=== PATIENT | female | born 1930 | race Caucasian/White ===

== ENCOUNTER 2017-12-21 02:12 | Inpatient (IN) ==
[2017-12-21 02:28] LABS: ABG Base Excess 0.6 mmol/L (-2.4-2.3); ABG HCO3 27.1 mmhg (22.0-26.0); ABG Oxygen Saturation 97 % (90-100); ABG PO2 99.8 mmhg (80-100); ABG TCO2 28.9 mmhg (23-27)
[2017-12-21 02:30] LABS: Allen's Test Patient Unable
[2017-12-21 03:15] LABS: Basophils # 0.1 K/mm3 (0-0.2); Basophils % 0.7 % (0.1-2.0); Eosinophils # 0.5 K/mm3 (0.0-0.4); Eosinophils % 5.1 % (0.1-12.0); Lymphocytes # 2.2 K/mm3 (0.7-4.5); Lymphocytes % 23.6 K/mm3 (10-50); Mean Corpuscular HGB Conc 31.8 g/dL (31.8-35.4); Mean Corpuscular Hemoglobin 27.7 pg (27.0-31.2); Mean Corpuscular Volume 87.1 fl (81-99); Mean Platelet Volume 6.9 fl (7.4-10.4); Monocytes # 0.4 K/mm3 (0.1-1.0); Monocytes % 4.6 % (1.7-9.3); Platelet Count 260 K/mm3 (142-424); Red Blood Count 5.05 M/mm3 (4.20-5.40); Red Cell Distribution Width 13.7 % (11.5-17.5); White Blood Count 9.1 K/mm3 (4.8-10.8)
[2017-12-21 03:29] LABS: Albumin Level 3.2 gm/dL (3.4-5.0); Albumin/Globulin Ratio 0.8 (1.1-1.8); Anion Gap 7.9 mEq/L (5-15); Bilirubin,Total 0.4 mg/dL (0.2-1.0); Calcium 8.9 mg/dL (8.5-10.1); Globulin 4.1 gm/dl (1.3-3.2); Potassium 3.9 mmoL/L (3.5-5.1); Total Protein,Serum 7.3 gm/dL (6.4-8.2)
[2017-12-21 03:33] LABS: Appearance,Urine CLEAR (Clear); Bilirubin,Urine Negative (Negative); Blood, Urine TRACE-L (Negative); Color,Urine YELLOW (Yellow); Glucose,Urine (UA) Negative (Negative); Ketones,Urine Negative (Negative); Leukocyte Esterase,Urine Negative (Negative); Microscopic, Urine URINE MICROSCOPIC (MICROSCOPIC); Protein,Urine 1+ (Negative); Specific Gravity, Urine 1.015 (1.005-1.030)
[2017-12-21 03:38] LABS: Bacteria,Urine 1+ /lpf; Mucus,Urine 1+ /lpf
[2017-12-21 03:49] LABS: Creatine Kinase 166 U/L (26-192)
[2017-12-21 05:25] LABS: ABG Base Excess 0.4 mmol/L (-2.4-2.3); ABG Oxygen Saturation 98 % (90-100); ABG PCO2 40.2 mmhg (35.0-45.0); ABG PH 7.41 mmol/L (7.35-7.45); ABG PO2 98.4 mmhg (80-100); ABG TCO2 26.3 mmhg (23-27)
[2017-12-21 05:28] LABS: Allen's Test Patient Unable; Oxygen 50 %; Tidal Volume bipap 16/8
[2017-12-21 06:08] LABS: T4 (Thyroxine) 10.5 ug/dl (4.7-13.3); Thyroid Stimulating Hormone 1.85 uIU/ml (0.358-3.740)
--- NOTE | 2017-12-21 07:03 | Emergency Department Note ---
ED Disposition Clinical Impression: Acute exacerbation of chronic obstructive airways disease, SDAT (senile dementia of Alzheimer's type) Fall Qualifiers: Encounter type: initial encounter Qualified Code(s): W19.XXXA - Unspecified fall, initial encounter Disposition: Admitted as Observation Condition on Discharge: Serious Referrals: Marcus Hardy MD [Primary Care Provider] - - Critical Care Critical Care Time: No Attestation: On 12/21/17, the high probability of a clinically significant, sudden or life threatening deterioration of the following system(s) required my full and direct attention, intervention and personal management. The time I documented below is in addition to time spent performing reported procedures but includes the following listed in this critical care notation. Medical Decision Making - Medical Records Medical records reviewed: Yes: I reviewed the patient's medical records. - Josh Inquiry Pt receiving controlled substance: No Vital Signs: 12/21/17 02:13 12/21/17 03:38 12/21/17 04:49 Temperature 98.7 F Temperature Source Rectal Pulse Rate [Right Radial] 133 H 121 H 118 H Respiratory Rate 28 H 23 21 Blood Pressure [Right Arm] 155/113 137/94 107/65 Blood Pressure Mean [Right Arm] 127 108 79 Blood Pressure Source [Right Arm] Automatic Cuff Automatic Cuff Automatic Cuff Blood Pressure Position [Right Arm] Sitting Sitting Sitting 02 Sat by Pulse Oximetry 68 L 94 L 95 Oxygen Delivery Method Room Air BiPAP BiPAP - Lab Data Lab results reviewed: Yes: I reviewed the patient's lab results. Lab Results 12/21/17 02:26: Specimen Source Left radial, O2 % 100%,nrb, ABG pH 7.30 L, ABG pCO2 57.0 H, ABG pO2 99.8, ABG HCO3 27.1 H, ABG Total CO2 28.9 H, ABG O2 Saturation 97, ABG Base Excess 0.6, Mele Test Patient unable 12/21/17 02:36: Urine Color Yellow, Urine Appearance Clear, Urine pH 6.0, Ur Specific [place] 1.015, Urine Protein 1+, Urine Glucose (UA) Negative, Urine Ketones Negative, Urine Blood Trace-l, Urine Nitrate Negative, Urine Bilirubin Negative, Urine Urobilinogen 1.0, Ur Leukocyte Esterase Negative, Urine WBC 3-5, Urine Bacteria 1+, Urine Mucus 1+ 12/21/17 03:07: WBC 9.1, RBC 5.05, Hgb 14.0, Hct 44.0, MCV 87.1, MCH 27.7, MCHC 31.8, RDW 13.7, Plt Count 260, MPV 6.9 L, Neut % (Auto) 66.0, Lymph % (Auto) 23.6, [place] % (Auto) 4.6, Eos % (Auto) 5.1, Baso % (Auto) 0.7, Neut # (Auto) 6.0, Lymph # (Auto) 2.2, [place] # (Auto) 0.4, Eos # (Auto) 0.5 H, Baso # (Auto) 0.1 12/21/17 03:07: Sodium 142, Potassium 3.9, Chloride 106, Carbon Dioxide 32, Anion Gap 7.9, BUN 23 H, Creatinine 1.00, Estimated Creat Clear 53, Estimated GFR 52 L, Est GFR ( Amer) 63, Glucose 131 H, Calcium 8.9, Total Bilirubin 0.4, AST 26, ALT 38, Alkaline Phosphatase 120 H, Total Protein 7.3, Albumin 3.2 L, Globulin 4.1 H, Albumin/Globulin Ratio 0.8 L 12/21/17 03:07: Lactate 1.5 12/21/17 03:07: Total Creatine Kinase 166, CK-MB (CK-2) 6.2 H D, CK-MB (CK-2) Rel Index 3.7, Troponin I < 0.02 12/21/17 03:07: B-Natriuretic Peptide 36 12/21/17 05:02: Specimen Source Left radial, O2 % 50, ABG pH 7.41, ABG pCO2 40.2, ABG pO2 98.4, ABG HCO3 25.0, ABG Total CO2 26.3, ABG O2 Saturation 98, ABG Base Excess 0.4, Mele Test Patient unable, Vent Rate 16, Tidal Volume bipap 16/8 12/21/17 05:30: Troponin I < 0.02, TSH 1.85, Thyroxine (T4) 10.5 Result diagrams: 12/21/17 03:07 12/21/17 03:07 Orders (Tests/Meds): ED MEDICATIONS Discontinued Medications Generic Name Dose Route Start Last Admin Trade Name Freq PRN Reason Stop Dose Admin Albuterol/Ipratropium 3 ml 12/21/17 02:26 Duoneb 3ml Neb IH 12/21/17 02:27 ONCE ONE Furosemide 40 mg 12/21/17 02:50 12/21/17 02:59 Lasix 100mg/10ml Vial IV 12/21/17 02:51 40 mg ONCE ONE Administration Methylprednisolone Sodium Succinate 125 mg 12/21/17 02:26 12/21/17 02:36 Solu-Medrol 125mg/2ml Vial IV 12/21/17 02:27 125 mg ONCE ONE Administration ORDERS Category Date Time Status CT cervical spine wo con Stat Cat Scan 12/21/17 02:[address] head/brain wo con Stat Cat Scan 12/21/17 02:33 Taken XR chest portable Stat Exams 12/21/17 02:22 Taken XR pelvis 1-2V Stat Exams 12/21/17 02:33 Taken Urinalysis and Microscopic Stat Lab 12/21/17 02:36 Ordered Blood Culture Stat Micro 12/21/17 03:07 Ordered - Radiology Data #1 Image(s): Chest, Pelvis Image Reviewed: Yes I reviewed the patient's radiology image Preliminary Findings: Abnormal (chronic changes ) - CT Data CT Scan: Head, C-Spine Time Received: 07:[address] Reviewed: Yes: I have viewed the radiologist's interpretation Preliminary Findings: No Fracture Seen - ECG Data Tracing #1 Arrhythmias present: sinus tach Ischemic changes: non-specific ST-T wave changes ECG compared to prior tracings: there are no significant changes - Physician Consults Physician Consulted: eve Reason -: Admission Resp/SOB HPI - General Chief Complaint: Shortness of Breath/Dyspnea Stated Complaint: shortness of breath Time Seen by Provider: 12/21/17 02:30 Mode of Arrival: EMS Source of Information: Relative, EMS, Medical Record Limitations: Altered Mental Status Description of Symptoms (Recalled from ER Triage Doc. by RN): prison reports difficulty breathing for one week, tonight it became worse and pt was using accessory muscles to breathe. - History of Present Illness pt with acute sob with no def chest pain and found on floor - pt unable to give hx sec to sdat Complaint: shortness of breath Onset (ago): hour(s) Severity: severe Known history of: COPD Associated symptoms: denies other symptoms Treatment prior to arrival: bronchodilator - Related Data Home oxygen amount: none Home Medications Medication Instructions Recorded Confirmed Aspirin [Aspirin 81mg chewable 81 mg PO DAILY 06/06/17 12/21/17 tab] Budesonide/Formoterol Fumarate 6 gm IH DAILY 06/06/17 12/21/17 [Symbicort 160-4.5 Mcg Inhaler] Cetirizine HCl 10 mg PO DAILY 06/06/17 12/21/17 Cranberry Fruit Extract [Cranberry] 405 mg PO DAILY 06/06/17 12/21/17 Ipratropium [place] [Atrovent 0.5 mg IH QID 06/06/17 12/21/17 0.5mg/2.5mL neb] Lactulose [Lactulose 10gm/15ml 1 dose PO DIRECTED 06/06/17 12/21/17 Oral Soln] Memantine HCl [Memantine 10mg 10 mg PO BID 06/06/17 12/21/17 Tablet] Metoprolol Tartrate [Lopressor 25 mg PO BID 06/06/17 12/21/17 25mg tablet] Omeprazole [Omeprazole 40mg 40 mg PO DAILY 06/06/17 12/21/17 Capsule] Polyethylene Glycol 3350 [Miralax 17 gm PO DAILY 06/06/17 12/21/17 17gm Packet] Allergies Allergy/AdvReac Type Severity Reaction Status Date / Time No Known Allergies Allergy Verified 12/21/17 02:21 [facility] History I have reviewed the patient's past medical history: Yes - Social History Alcohol Intake: never - Psychiatric History Expresses thoughts of harming self/others: None Suicide Plan Description: No Plan ROS Obtained: Yes All systems reviewed & no additional complaints - Constitutional Constitutional: Denies fever(s) - Eyes Eyes: Denies change in vision - ENT Ears, Nose, Mouth, and Throat: Denies sore throat - Cardiovascular Cardiovascular: Denies chest pain, Reports dyspnea - Respiratory Respiratory: Yes cough, Yes dyspnea - Gastrointestinal Gastrointestingal: Denies: abdominal pain, vomiting - Genitourinary Female Genitourinary: Denies hematuria - Musculoskeletal Musculoskeletal: Denies joint pain - Integumentary/Breasts Skin/Breast: Denies rash - Neurologic Neurologic: Denies seizure-like activity Physical Exam - General General appearance: other (sob ) - Head Head exam: atraumatic - Eye Eye exam: Present: PERRL, EOMI - ENT ENT exam: Present: mucous membranes dry - Neck Neck exam: Present: trachea midline - Respiratory Respiratory exam: Present: respiratory distress, wheezes - Cardiovascular Cardiovascular exam: Present: tachycardia, systolic murmur - Abdominal Exam Abdominal exam: Present: soft - Extremities Exam Extremities exam: Present: pedal edema. Absent: calf tenderness - Neurological Exam Neurological exam: Present: alert, CN II-XII intact - Skin Skin exam: Absent: rash
--- NOTE | 2017-12-21 09:05 | Pharmacy Consult Notes ---
[facility] Pharmacy VTE Monitoring - Patient Demographics Admission date: 12/21/17 Report Date: 12/21/17 Time: 09:04 Allergies/Adverse Reactions: Patient Allergies No Known Allergies Allergy (Verified 12/21/17 02:21) Height: 1.68 m Weight: 77.706 kg Patient Problems: Current Active Problems Acute exacerbation of chronic obstructive airways disease (Acute) SDAT (senile dementia of Alzheimer's type) (Acute) Fall (Acute) - VTE Risk Labs: VTE Related Lab Results Hgb 14.0 g/dL (12.2-16.2) 12/21/17 03:07 Hct 44.0 % (37.0-47.0) 12/21/17 03:07 Plt Count 260 K/mm3 (142-424) 12/21/17 03:07 BUN 23 mg/dL (7-18) H 12/21/17 03:07 Creatinine 1.00 mg/dL (0.55-1.02) 12/21/17 03:07 Estimated Creat Clear 53 mL/min (0-300) 12/21/17 03:07 Clinical Trial Participant: No - Prophylaxis VTE Prophylaxis Ordered?: Yes Types of VTE Prophylaxis: TEDS Knee High
--- NOTE | 2017-12-21 13:56 | History & Physical Report ---
*Admission Date: 12/21/17 *Chief complaint: Dyspnea, mental status change *History of present illness: 87-year-old white female with history of chronic bronchitis and significant dementia, requiring Seroquel therapy, frequent urinary tract infections who has been a resident of the [facility] [place] over the past 1-2 years. Over the past 3-4 days she has transferred to our service at that institution, and over the past week or so apparently has been becoming more dyspneic and short of air along with increasing problems with oral intake and coughing and sputum production. Had some falls earlier this morning, came to the emergency department where x- rays have been negative, but she was found to be hypercapnic, minimally acidotic and was placed on BiPAP therapy which improve her hypercapnia but was felt to have a COPD exacerbation and was admitted to hospital for IV antibiotics and increased pulmonary toilet. I discussed the case with 2 of her daughters on admission, they emphasized her DNR status and their ongoing placement desire at the [facility]. Apparently she has been well managed with a regimen of albuterol and budesonide nebulizer treatments. [facility] History Medical History: Reports:: Hypertension, Myocardial Infarction Denies:: Diabetes Mellitus Type 1, Diabetes Mellitus Type 2 Other Surgeries: Yes: Hysterectomy-Total, Other - *Social History Smoking Status: Never smoker Alcohol Intake: never Occupational Status: disabled - Psychiatric History Expresses thoughts of harming self/others: None Suicide Plan Description: No Plan *Family Hx:: Cancer, Diabetes, Heart Attack Review of Systems - Review of Systems Review of systems:: unable to obtain Patient is obtunded, review of systems from record review and daughters, please see HPI - *Neurologic Denies seizure-like activity Meds Home Medications Medication Instructions Recorded Confirmed Type Aspirin [Aspirin 81mg chewable 81 mg PO DAILY 06/06/17 12/21/17 History tab] Cetirizine HCl 10 mg PO DAILY 06/06/17 12/21/17 History Cranberry Fruit Extract [Cranberry] 405 mg PO DAILY 06/06/17 12/21/17 History Ipratropium [place] [Atrovent 0.5 mg IH QID 06/06/17 12/21/17 History 0.5mg/2.5mL neb] Lactulose [Lactulose 10gm/15ml 1 dose PO MOWEFR 06/06/17 12/21/17 History Oral Soln] Memantine HCl [Memantine 10mg 10 mg PO BID 06/06/17 12/21/17 History Tablet] Metoprolol Tartrate [Lopressor 12.5 mg PO BID 06/06/17 12/21/17 History 25mg tablet] Omeprazole [Omeprazole 40mg 40 mg PO DAILY 06/06/17 12/21/17 History Capsule] Polyethylene Glycol 3350 [Miralax 17 gm PO DAILY 06/06/17 12/21/17 History 17gm Packet] Acetaminophen [Acetaminophen 650mg 650 mg RC Q6HP PRN 12/21/17 12/21/17 History suppository] Bismuth Subsalicylate 30 ml PO QIDP PRN 12/21/17 12/21/17 History [Pepto-Bismol] Guaifenesin/Dextromethorphan 5 ml PO Q4HP PRN 12/21/17 12/21/17 History [Robafen Dm Cough Liquid] Ipratropium/Albuterol Sulfate 3 ml IH Q2HP PRN 12/21/17 12/21/17 History [Duoneb 3mL neb] Ipratropium/Albuterol Sulfate 3 ml IH QID 12/21/17 12/21/17 History [Duoneb 3mL neb] Linaclotide [Linzess] 72 mcg PO DAILY 12/21/17 12/21/17 History Magnesium Hydroxide [Milk of 30 ml PO DAILYP PRN 12/21/17 12/21/17 History Magnesia] Polyethylene Glycol 3350 [Miralax 17 gm PO DAILY 12/21/17 12/21/17 History 17gm Packet] Promethazine HCl [Phenergan 12.5 mg IM Q6HP PRN 12/21/17 12/21/17 History 25mg/mL 1mL vial] Quetiapine Fumarate [Seroquel] 12.5 mg PO HS 12/21/17 12/21/17 History Sennosides [Senna] 8.6 mg PO BID 12/21/17 12/21/17 History Allergies Allergy/AdvReac Type Severity Reaction Status Date / Time No Known Allergies Allergy Verified 12/21/17 02:21 Exam Vital signs and Labs for Last 24 Hours: Temp Pulse Resp BP Pulse Ox 98.0 F 101 H 20 146/85 98 12/21/17 08:18 12/21/17 08:18 12/21/17 08:18 12/21/17 08:18 12/21/17 08:18 Laboratory Results - last 24 hr 12/21/17 02:26: Specimen Source Left radial, O2 % 100%,nrb, ABG pH 7.30 L, ABG pCO2 57.0 H, ABG pO2 99.8, ABG HCO3 27.1 H, ABG Total CO2 28.9 H, ABG O2 Saturation 97, ABG Base Excess 0.6, Mele Test Patient unable 12/21/17 02:36: Urine Color Yellow, Urine Appearance Clear, Urine pH 6.0, Ur Specific [place] 1.015, Urine Protein 1+, Urine Glucose (UA) Negative, Urine Ketones Negative, Urine Blood Trace-l, Urine Nitrate Negative, Urine Bilirubin Negative, Urine Urobilinogen 1.0, Ur Leukocyte Esterase Negative, Urine WBC 3-5, Urine Bacteria 1+, Urine Mucus 1+ 12/21/17 03:07: WBC 9.1, RBC 5.05, Hgb 14.0, Hct 44.0, MCV 87.1, MCH 27.7, MCHC 31.8, RDW 13.7, Plt Count 260, MPV 6.9 L, Neut % (Auto) 66.0, Lymph % (Auto) 23.6, [place] % (Auto) 4.6, Eos % (Auto) 5.1, Baso % (Auto) 0.7, Neut # (Auto) 6.0, Lymph # (Auto) 2.2, [place] # (Auto) 0.4, Eos # (Auto) 0.5 H, Baso # (Auto) 0.1 12/21/17 03:07: Sodium 142, Potassium 3.9, Chloride 106, Carbon Dioxide 32, Anion Gap 7.9, BUN 23 H, Creatinine 1.00, Estimated Creat Clear 53, Estimated GFR 52 L, Est GFR ( Amer) 63, Glucose 131 H, Calcium 8.9, Total Bilirubin 0.4, AST 26, ALT 38, Alkaline Phosphatase 120 H, Total Protein 7.3, Albumin 3.2 L, Globulin 4.1 H, Albumin/Globulin Ratio 0.8 L 12/21/17 03:07: Lactate 1.5 12/21/17 03:07: Total Creatine Kinase 166, CK-MB (CK-2) 6.2 H D, CK-MB (CK-2) Rel Index 3.7, Troponin I < 0.02 12/21/17 03:07: B-Natriuretic Peptide 36 12/21/17 05:02: Specimen Source Left radial, O2 % 50, ABG pH 7.41, ABG pCO2 40.2, ABG pO2 98.4, ABG HCO3 25.0, ABG Total CO2 26.3, ABG O2 Saturation 98, ABG Base Excess 0.4, Mele Test Patient unable, Vent Rate 16, Tidal Volume bipap 06/1212/21/17 05:30: Troponin I < 0.02, TSH 1.85, Thyroxine (T4) 10.5 12/21/17 10:11: Troponin I < 0.02 12/21/17 13:12: Troponin I < 0.02 I & O for Last 24 hours: Intake & Output 12/19/17 12/20/17 12/21/17 12/22/17 11:59 11:59 11:59 11:59 Intake Total 0 / 0 Output Total 1300 / 1300 Balance -1300 / -1300 0 / 0 Weight 171 lb 5 oz Narrative: Patient is obtunded, responds to tactile stimuli, nonverbal. Does not open her eyes. Oropharynx appears clear. No JVD. Lungs have rhonchi and somewhat poor air movement in the bases. Heart rate regular but exam is limited by her lung sounds. Abdomen is slightly tender in both lower abdominal quadrants but no rebound or guarding or masses. 2+ edema below the shins. Patient is wearing JILL hose. No obvious skin breakdown. Moves upper extremities spontaneously. Neurologic exam unable to be accurately recorded because of her significant obtundation. Assessment and Plan (1) Chronic bronchitis with acute exacerbation Current visit: Yes Status: Acute Category: Medical Code(s): J20.9 - Acute bronchitis, unspecified; J42 - Unspecified chronic bronchitis Agree with admission, close observation of oxygenation status. IV antibiotics. Continue increased pulmonary toilet. We will respect DNR status. (2) Chronic bronchitis Current visit: Yes Status: Acute Category: Medical Code(s): J42 - Unspecified chronic bronchitis (3) Dementia with behavioral problem Current visit: Yes Status: Acute Category: Medical Code(s): F03.91 - Unspecified dementia with behavioral disturbance Agree with ongoing long-term care. Apparently there was some concern from previous healthcare provider about patient's atypical antipsychotic. Family is well aware of the risks of Seroquel therapy and wished discontinued. They report excellent improvement in aggressive and self harm activities. We will continue this when she goes back to the long-term care facility. (4) Fall Current visit: Yes Status: Acute Qualifiers: Encounter type: initial encounter Qualified Code(s): W19.XXXA - Unspecified fall, initial encounter Category: Medical Code(s): W19.XXXA - Unspecified fall, initial encounter (5) SDAT (senile dementia of Alzheimer's type) Current visit: Yes Status: Acute Category: Medical Code(s): G30.1 - Alzheimer's disease with late onset; F02.80 - Dementia in other diseases classified elsewhere without behavioral disturbance
[2017-12-22 06:49] LABS: Basophils % 0.1 % (0.1-2.0); Eosinophils % 0.1 % (0.1-12.0); Hematocrit 39.9 % (37.0-47.0); Hemoglobin 12.6 g/dL (12.2-16.2); Lymphocytes # 0.8 K/mm3 (0.7-4.5); Lymphocytes % 7.5 K/mm3 (10-50); Mean Corpuscular HGB Conc 31.7 g/dL (31.8-35.4); Mean Corpuscular Hemoglobin 27.1 pg (27.0-31.2); Mean Corpuscular Volume 85.4 fl (81-99); Mean Platelet Volume 7.4 fl (7.4-10.4); Monocytes # 0.4 K/mm3 (0.1-1.0); Monocytes % 3.4 % (1.7-9.3); Neutrophils # 9.6 K/mm3 (1.8-7.8); Neutrophils % 88.9 % (37.0-80.0); Platelet Count 237 K/mm3 (142-424); Red Blood Count 4.67 M/mm3 (4.20-5.40); Red Cell Distribution Width 13.7 % (11.5-17.5); White Blood Count 10.8 K/mm3 (4.8-10.8)
[2017-12-22 06:58] LABS: Anion Gap 8.2 mEq/L (5-15); Calcium 8.8 mg/dL (8.5-10.1); Potassium 4.2 mmoL/L (3.5-5.1)
[2017-12-22 09:33] LABS: Lymphocytes % 5 % (10-50); Monocytes % 2 % (2-9); Neutrophils % 91 % (42-76); RBC Morphology Normal; Total Cells Counted 100
--- NOTE | 2017-12-22 16:40 | Progress Note ---
Internal Medicine - PN: Subj *Date: 12/22/17 *Time: 12:15 Interval history: Overnight showed mild improvement in respiratory status and mentation. Tolerating some oral intake today. Remains afebrile. Still requiring Ventimask 50% at 15 L. Increased responsiveness on exam. Denies nausea or vomiting Exam Vital signs and Labs for Last 24 Hours: Temp Pulse Resp BP Pulse Ox 97.9 F 91 H 20 137/68 97 12/22/17 15:18 12/22/17 15:18 12/22/17 15:18 12/22/17 15:18 12/22/17 15:18 Laboratory Results - last 24 hr 12/22/17 06:33: WBC 10.8, RBC 4.67, Hgb 12.6, Hct 39.9, MCV 85.4, MCH 27.1, MCHC 31.7 L, RDW 13.7, Plt Count 237, MPV 7.4, Neut % (Auto) 88.9 H, Lymph % (Auto) 7.5 L, [place] % (Auto) 3.4, Eos % (Auto) 0.1, Baso % (Auto) 0.1, Neut # (Auto) 9.6 H, Lymph # (Auto) 0.8, [place] # (Auto) 0.4, Eos # (Auto) 0.0, Baso # (Auto) 0.0, Total Counted 100, Neutrophils % (Manual) 91 H, Band Neutrophils % 1.0, Lymphocytes % (Manual) 5 L, Atypical Lymphs % 1.0, Monocytes % (Manual) 2, Platelet Estimate Normal, RBC Morphology Normal 12/22/17 06:33: Sodium 143, Potassium 4.2, Chloride 106, Carbon Dioxide 33 H, Anion Gap 8.2, BUN 35 H D, Creatinine 0.97, Estimated Creat Clear 48, Estimated GFR 54 L, Est GFR ( Amer) 66, Glucose 148 H, Calcium 8.8 I & O for Last 24 hours: Intake & Output 12/19/17 12/20/17 12/21/17 12/22/17 23:59 23:59 23:59 23:59 Intake Total 559 / 559 1326 / 1326 Output Total 1950 / 1950 1050 / 1050 Balance -1391 / -1391 276 / 276 Weight 77.706 kg 78.131 kg - *Routine HEENT Exam Head: Present: normocephalic, atraumatic Eye: Present: EOMI, PERRL ENT: Present: mucous membranes moist Comments: Right sided matting of eyelids - *Routine Neck Exam Present: supple, full ROM. Absent: JVD - *Routine Respiratory Exam Present: CTA bilaterally, prolonged expiratory phase, rales, crackles - *Routine Cardiovascular Exam Present: RRR, Normal S1, Normal S2. Absent: murmur - *Routine Abdominal Exam Present: soft, normoactive bowel sounds. Absent: tenderness - *Routine Rectal Exam Patient deferred: visual exam - *Routine Exam Patient deferred: external exam - *Routine Extremities Exam Absent: cyanosis, clubbing, edema - *Routine Skin Exam Present: intact, ecchymosis (Right foot). Absent: cyanosis - *Routine Neurological Exam Responsive to voice, does not follow directions. Assessment and Plan (1) Chronic bronchitis with acute exacerbation Current visit: Yes Status: Acute Category: Medical Code(s): J20.9 - Acute bronchitis, unspecified; J42 - Unspecified chronic bronchitis Continue current course of antibiotics, interval improvement, appears to be defervescing. (2) Chronic bronchitis Current visit: Yes Status: Acute Category: Medical Code(s): J42 - Unspecified chronic bronchitis (3) Dementia with behavioral problem Current visit: Yes Status: Acute Category: Medical Code(s): F03.91 - Unspecified dementia with behavioral disturbance (4) Fall Current visit: Yes Status: Acute Qualifiers: Encounter type: initial encounter Qualified Code(s): W19.XXXA - Unspecified fall, initial encounter Category: Medical Code(s): W19.XXXA - Unspecified fall, initial encounter (5) SDAT (senile dementia of Alzheimer's type) Current visit: Yes Status: Acute Category: Medical Code(s): G30.1 - Alzheimer's disease with late onset; F02.80 - Dementia in other diseases classified elsewhere without behavioral disturbance - Assessment and plan all Dx Assessment and Plan for all problems:: Continue current course for treatment of problems. Patient responding to antibiotics with increased responsiveness to caregivers. Wean oxygen as tolerated with goal greater than 92% while awake, greater than 88% while asleep -Continue diet as tolerated -Continues to require inpatient medical management for respiratory failure
--- NOTE | 2017-12-23 11:45 | Progress Note ---
Internal Medicine - PN: Subj *Date: 12/23/17 *Time: 11:15 Interval history: Able to wean off supplemental oxygen overnight. More alert this morning. Opens to voice. Afebrile, hemodynamically stable, taking oral food, holding cup. Caregivers at bedside state patient is significantly improved however still only approximately 75% of her baseline. No acute events. Exam Vital signs and Labs for Last 24 Hours: Temp Pulse Resp BP Pulse Ox 97.9 F 76 20 143/70 89 L 12/23/17 07:55 12/23/17 07:55 12/23/17 07:55 12/23/17 07:55 12/23/17 07:55 I & O for Last 24 hours: Intake & Output 12/20/17 12/21/17 12/22/17 12/23/17 23:59 23:59 23:59 23:59 Intake Total 559 / 559 1566 / 1566 600 / 600 Output Total 1950 / 1950 1050 / 1050 701 / 701 Balance -1391 / -1391 516 / 516 -101 / -101 Weight 77.706 kg 78.131 kg 79.038 kg Microbiology Reports for the Last 24 Hours: Microbiology 12/21/17 03:07 Blood Blood Culture - Preliminary NO GROWTH AFTER 48 HOURS 12/21/17 03:07 Blood Blood Culture - Preliminary NO GROWTH AFTER 48 HOURS Narrative: - *Routine HEENT Exam Head: Present: normocephalic, atraumatic Eye: Present: EOMI, PERRL ENT: Present: mucous membranes moist Comments: Right sided matting of eyelids - *Routine Neck Exam Present: supple, full ROM. Absent: JVD - *Routine Respiratory Exam Present: CTA bilaterally, prolonged expiratory phase, no rales, no crackles - *Routine Cardiovascular Exam Present: RRR, Normal S1, Normal S2. Absent: murmur - *Routine Abdominal Exam Present: soft, normoactive bowel sounds. Absent: tenderness - *Routine Rectal Exam Patient deferred: visual exam - *Routine Exam Patient deferred: external exam - *Routine Extremities Exam Absent: cyanosis, clubbing, edema - *Routine Skin Exam Present: intact, ecchymosis (Right foot). Absent: cyanosis - *Routine Neurological Exam Responsive to voice, more alert this morning. Intermittently follows directions. Assessment and Plan (1) Chronic bronchitis with acute exacerbation Current visit: Yes Status: Acute Category: Medical Code(s): J20.9 - Acute bronchitis, unspecified; J42 - Unspecified chronic bronchitis (2) Chronic bronchitis Current visit: Yes Status: Acute Category: Medical Code(s): J42 - Unspecified chronic bronchitis (3) Dementia with behavioral problem Current visit: Yes Status: Acute Category: Medical Code(s): F03.91 - Unspecified dementia with behavioral disturbance (4) Fall Current visit: Yes Status: Acute Qualifiers: Encounter type: initial encounter Qualified Code(s): W19.XXXA - Unspecified fall, initial encounter Category: Medical Code(s): W19.XXXA - Unspecified fall, initial encounter (5) SDAT (senile dementia of Alzheimer's type) Current visit: Yes Status: Acute Category: Medical Code(s): G30.1 - Alzheimer's disease with late onset; F02.80 - Dementia in other diseases classified elsewhere without behavioral disturbance - Assessment and plan all Dx Assessment and Plan for all problems:: 87-year-old with acute hypoxemic respiratory failure that is resolving. -New antibiotics as ordered -Discontinue Yung -IV fluids -More complaint of arm pain today, arm x-ray pending. Fall prior to admission, right arm has been a chronic problem for her however pain seems worse acutely now that she is responsive. -Continues to require inpatient management.
--- NOTE | 2017-12-24 08:12 | Discharge Summary ---
General - General Admission date:: 12/21/17 Discharge date: 12/24/17 HPI HPI: 87-year-old white female with history of chronic bronchitis and significant dementia, requiring Seroquel therapy, frequent urinary tract infections who has been a resident of the [facility] – [place], [place] over the past 1-2 years. Over the past 3-4 days she has transferred to our service at that institution, and over the past week or so apparently has been becoming more dyspneic and short of air along with increasing problems with oral intake and coughing and sputum production. Had some falls earlier this morning, came to the emergency department where x- rays have been negative, but she was found to be hypercapnic, minimally acidotic and was placed on BiPAP therapy which improve her hypercapnia but was felt to have a COPD exacerbation and was admitted to hospital for IV antibiotics and increased pulmonary toilet. I discussed the case with 2 of her daughters on admission, they emphasized her DNR status and their ongoing placement desire at the [facility] facility. Apparently she has been well managed with a regimen of albuterol and budesonide nebulizer treatments. Hospital Course Hospital Course: Patient found to have acute hypoxemic respiratory failure on admission. Initiated on antibiotics and supplemental oxygen. Over the next 48 hours she responded impressively with resolution of hypoxemia, able to wean off supplemental oxygen. Remainder of symptoms defervesced with return to baseline. Patient able to eat a regular diet, interactive on exam, stable on ambient air for greater than 24 hours. Meeting medical requirements for discharge home. Plan to continue antibiotics for a full 10 day course. Stable for discharge back to the care of her nursing facility with her private sitters. Objective Vital signs: Temp Pulse Resp BP Pulse Ox 97.3 F L 93 H 20 159/99 90 L 12/24/17 07:53 12/24/17 07:53 12/24/17 07:53 12/24/17 07:53 12/24/17 07:53 - *Routine HEENT Exam Head: Present: normocephalic, atraumatic Eye: Present: EOMI, PERRL ENT: Present: mucous membranes moist - *Routine Neck Exam Present: supple, full ROM. Absent: JVD - *Routine Respiratory Exam Present: CTA bilaterally. Absent: accessory muscle use, prolonged expiratory phase, rales, wheezes, crackles - *Routine Cardiovascular Exam Present: RRR, Normal S1, Normal S2. Absent: murmur - *Routine Abdominal Exam Present: soft, normoactive bowel sounds. Absent: tenderness - *Routine Rectal Exam Patient deferred: visual exam - *Routine Exam Patient deferred: external exam - *Routine Extremities Exam Absent: cyanosis, clubbing, edema - *Routine Skin Exam Present: intact. Absent: cyanosis, erythema - *Routine Neurological Exam Present: alert, CN II-XII intact - Routine Psychiatric Exam Comments: Pleasantly confused Results Labs on day of discharge: Preliminary micro results at discharge 12/21/17 03:07 Blood Culture - Preliminary Blood NO GROWTH AFTER 48 HOURS 12/21/17 03:07 Blood Culture - Preliminary Blood NO GROWTH AFTER 48 HOURS DS: Diagnosis - Discharge Diagnosis (1) Chronic bronchitis with acute exacerbation Status: Acute (2) Chronic bronchitis Status: Acute (3) Dementia with behavioral problem Status: Acute (4) Fall Status: Acute (5) SDAT (senile dementia of Alzheimer's type) Status: Acute Discharge Plan - Patient Discharge Instructions ACTIVITY: Continue current activity, Ambulate as tolerated DIET: continue same diet Additional Instructions: Please alternate patient's respiratory nebulizers. Please provide alternating schedule consisting of DuoNeb followed by budesonide followed by DuoNeb followed by budesonide for 4 treatments a day. For example: DuoNeb at 8 AM budesonide at noon DuoNeb 4 PM budesonide 8 PM. May utilize DuoNeb as needed in the interim. - Follow up Plan Follow up with: Marcus Hardy MD [Primary Care Provider] - 1 week Disposition: er Intermediate Care Fac Home Medications: Home Medications Medication Instructions Recorded Confirmed Type Aspirin [Aspirin 81mg chewable 81 mg PO DAILY 06/06/17 12/21/17 History tab] Cetirizine HCl 10 mg PO DAILY 06/06/17 12/21/17 History Cranberry Fruit Extract [Cranberry] 405 mg PO DAILY 06/06/17 12/21/17 History Ipratropium [place] [Atrovent 0.5 mg IH QID 06/06/17 12/21/17 History 0.5mg/2.5mL neb] Lactulose [Lactulose 10gm/15ml 1 dose PO MOWEFR 06/06/17 12/21/17 History Oral Soln] Memantine HCl [Memantine 10mg 10 mg PO BID 06/06/17 12/21/17 History Tablet] Metoprolol Tartrate [Lopressor 12.5 mg PO BID 06/06/17 12/21/17 History 25mg tablet] Omeprazole [Omeprazole 40mg 40 mg PO DAILY 06/06/17 12/21/17 History Capsule] Polyethylene Glycol 3350 [Miralax 17 gm PO DAILY 06/06/17 12/21/17 History 17gm Packet] Acetaminophen [Acetaminophen 650mg 650 mg RC Q6HP PRN 12/21/17 12/21/17 History suppository] Bismuth Subsalicylate 30 ml PO QIDP PRN 12/21/17 12/21/17 History [Pepto-Bismol] Guaifenesin/Dextromethorphan 5 ml PO Q4HP PRN 12/21/17 12/21/17 History [Robafen Dm Cough Liquid] Ipratropium/Albuterol Sulfate 3 ml IH Q2HP PRN 12/21/17 12/21/17 History [Duoneb 3mL neb] Ipratropium/Albuterol Sulfate 3 ml IH QID 12/21/17 12/21/17 History [Duoneb 3mL neb] Linaclotide [Linzess] 72 mcg PO DAILY 12/21/17 12/21/17 History Magnesium Hydroxide [Milk of 30 ml PO DAILYP PRN 12/21/17 12/21/17 History Magnesia] Polyethylene Glycol 3350 [Miralax 17 gm PO DAILY 12/21/17 12/21/17 History 17gm Packet] Promethazine HCl [Phenergan 12.5 mg IM Q6HP PRN 12/21/17 12/21/17 History 25mg/mL 1mL vial] Quetiapine Fumarate [Seroquel] 12.5 mg PO HS 12/21/17 12/21/17 History Sennosides [Senna] 8.6 mg PO BID 12/21/17 12/21/17 History Prescriptions/Medication Reconciliation: New predniSONE [Deltasone 20mg tablet] 40 mg PO DAILY 1 Days #2 tablet Azithromycin [Zithromax 250mg tab] 250 mg PO 1300 1 Days #1 tablet Cefdinir [Omnicef 300mg Capsule] 300 mg PO BID 6 Days #12 capsule Continue Metoprolol Tartrate [Lopressor 25mg tablet] 12.5 mg PO BID Aspirin [Aspirin 81mg chewable tab] 81 mg PO DAILY Omeprazole [Omeprazole 40mg Capsule] 40 mg PO DAILY Lactulose [Lactulose 10gm/15ml Oral Soln] 1 dose PO MOWEFR Ipratropium [place] [Atrovent 0.5mg/2.5mL neb] 0.5 mg IH QID Cranberry Fruit Extract [Cranberry] 405 mg PO DAILY Cetirizine HCl 10 mg PO DAILY Quetiapine Fumarate [Seroquel] 12.5 mg PO HS Guaifenesin/Dextromethorphan [Robafen Dm Cough Liquid] 5 ml PO Q4HP PRN PRN Reason: Cough Polyethylene Glycol 3350 [Miralax 17gm Packet] 17 gm PO DAILY Promethazine HCl [Phenergan 25mg/mL 1mL vial] 12.5 mg IM Q6HP PRN PRN Reason: Nausea And Vomiting Magnesium Hydroxide [Milk of Magnesia] 30 ml PO DAILYP PRN PRN Reason: BOWELS Linaclotide [Linzess] 72 mcg PO DAILY Ipratropium/Albuterol Sulfate [Duoneb 3mL neb] 3 ml IH QID Acetaminophen [Acetaminophen 650mg suppository] 650 mg RC Q6HP PRN PRN Reason: Fever > 100.4 Memantine HCl [Memantine 10mg Tablet] 10 mg PO BID Sennosides [Senna] 8.6 mg PO BID Bismuth Subsalicylate [Pepto-Bismol] 30 ml PO QIDP PRN PRN Reason: STOMACH DISCOMFORT Discontinued Polyethylene Glycol 3350 [Miralax 17gm Packet] 17 gm PO DAILY Ipratropium/Albuterol Sulfate [Duoneb 3mL neb] 3 ml IH Q2HP PRN PRN Reason: Shortness Of Breath Or Wheezing
--- NOTE | 2017-12-24 11:53 | Progress Note ---
Internal Medicine - PN: Subj *Date: 12/24/17 *Time: 08:00 Exam Vital signs and Labs for Last 24 Hours: Temp Pulse Resp BP Pulse Ox 97.3 F L 93 H 20 159/99 90 L 12/24/17 07:53 12/24/17 07:53 12/24/17 07:53 12/24/17 07:53 12/24/17 07:53 I & O for Last 24 hours: Intake & Output 12/21/17 12/22/17 12/23/17 12/24/17 23:59 23:59 23:59 23:59 Intake Total 559 / 559 1566 / 1566 2047 / 2047 370 / 370 Output Total 1950 / 1950 1050 / 1050 951 / 951 Balance -1391 / -1391 516 / 516 1096 / 1096 370 / 370 Weight 77.706 kg 78.131 kg 79.038 kg 80.371 kg Assessment and Plan (1) Chronic bronchitis with acute exacerbation Status: Acute Category: Medical Code(s): J20.9 - Acute bronchitis, uns pecified; J42 - Unspecified chronic bronchitis (2) Chronic bronchitis Status: Acute Category: Medical Code(s): J42 - Unspecified chronic bronchitis (3) Dementia with behavioral problem Status: Acute Category: Medical Code(s): F03.91 - Unspecified dementia with behavioral disturbance (4) Fall Status: Acute Qualifiers: Encounter type: initial encounter Qualified Code(s): W19.XXXA - Unspecified fall, initial encounter Category: Medical Code(s): W19.XXXA - Unspecified fall, initial encounter (5) SDAT (senile dementia of Alzheimer's type) Status: Acute Category: Medical Code(s): G30.1 - Alzheimer's disease with late onset; F02.80 - Dementia in other diseases classified elsewhere without behavioral disturbance The patient's infection will respond to the chosen ABx?: Yes Is the patient receiving the right drug, dose, and route?: Yes Could a more targeted ABx be ordered?: No
== END 2017-12-24 10:08 | disposition home or self-care (01) ==
LOC: 2ND 02:12 → ER 02:12 → 2ND 08:05
PROVIDERS: ADMIT Family Medicine; ATTEND Internal Medicine Adolescent Medicine

== ENCOUNTER 2017-12-28 00:10 | Inpatient (IN) ==
--- NOTE | 2017-12-28 00:24 | Emergency Department Note ---
ED Disposition Clinical Impression: SDAT (senile dementia of Alzheimer's type) Hip fracture Qualifiers: Encounter type: initial encounter Fracture type: closed Laterality: right Qualified Code(s): S72.001A - Fracture of unspecified part of neck of right femur, initial encounter for closed fracture Disposition: Admitted as Observation Condition on Discharge: Good - Critical Care Critical Care Time: No Attestation: On , the high probability of a clinically significant, sudden or life threatening deterioration of the following system(s) required my full and direct attention, intervention and personal management. The time I documented below is in addition to time spent performing reported procedures but includes the following listed in this critical care notation. Medical Decision Making - Medical Records Medical records reviewed: Yes: I reviewed the patient's medical records. - Josh Inquiry Pt receiving controlled substance: No Vital Signs: 12/28/17 00:11 Respiratory Rate 17 02 Sat by Pulse Oximetry 96 Oxygen Delivery Method Room Air Orders (Tests/Meds): ED MEDICATIONS Discontinued Medications Generic Name Dose Route Start Last Admin Trade Name Freq PRN Reason Stop Dose Admin Morphine Sulfate 2 mg 12/28/17 00:17 12/28/17 00:17 Morphine 2mg/Ml Syringe IV 12/28/17 00:18 2 mg ONCE ONE Administration ORDERS Category Date Time Status XR hip LT 2-3V w/pelvis Stat Exams 12/28/17 00:20 Taken XR hip RT 2-3V w/pelvis Stat Exams 12/28/17 00:20 Taken Basic Metabolic Panel Stat Lab 12/28/17 01:58 Ordered Complete Blood Count Auto Diff Stat Lab 12/28/17 01:58 Ordered INR [Prothrombin Time INR] Stat Lab 12/28/17 01:58 Ordered PT/PTT Stat Lab 12/28/17 01:58 Ordered Urinalysis and Microscopic Routine Lab 12/28/17 02:00 Ordered - Radiology Data #1 Image(s): Pelvis, Hip Image Reviewed: Yes I discussed the image results w/the radiologist Preliminary Findings: Abnormal (rt hip fx ) - Physician Consults Physician Consulted: eve Reason -: Admission General Adult HPI - General Chief complaint: PAIN Stated complaint: pain Time Seen by Provider: 12/28/17 00:15 Mode of Arrival: EMS Source of Information: Patient, Relative, EMS, Medical Record Limitations: No Limitations Description of Symptoms (Recalled from ER Triage Doc. by RN): Pilo Mattson reports pt. had an xray of the right hip and they received confirmation that her hip is fractured. She was sent to the ER for Pain control. - History of Present Illness HPI narrative: elderly wf with no def acute trauma has dev rt hip pain today and had xray which showed possible fx rt hip - brought to ed for eval - pt has dsat and poor historian Onset (ago): hour(s) Location: right, lower extremity Severity: moderate Consistency: constant Associated symptoms: denies other symptoms Treatments prior to arrival: none - Related Data Home Medications Medication Instructions Recorded Confirmed Aspirin [Aspirin 81mg chewable 81 mg PO DAILY 06/06/17 12/28/17 tab] Cetirizine HCl 10 mg PO DAILY 06/06/17 12/28/17 Cranberry Fruit Extract [Cranberry] 405 mg PO DAILY 06/06/17 12/28/17 Ipratropium [place] [Atrovent 0.5 mg IH QID 06/06/17 12/28/17 0.5mg/2.5mL neb] Lactulose [Lactulose 10gm/15ml 1 dose PO MOWEFR 06/06/17 12/28/17 Oral Soln] Memantine HCl [Memantine 10mg 10 mg PO BID 06/06/17 12/28/17 Tablet] Metoprolol Tartrate [Lopressor 12.5 mg PO BID 06/06/17 12/28/17 25mg tablet] Omeprazole [Omeprazole 40mg 40 mg PO DAILY 06/06/17 12/28/17 Capsule] Acetaminophen [Acetaminophen 650mg 650 mg RC Q6HP PRN 12/21/17 12/28/17 suppository] Bismuth Subsalicylate 30 ml PO QIDP PRN 12/21/17 12/28/17 [Pepto-Bismol] Guaifenesin/Dextromethorphan 5 ml PO Q4HP PRN 12/21/17 12/28/17 [Robafen Dm Cough Liquid] Ipratropium/Albuterol Sulfate 3 ml IH QID 12/21/17 12/28/17 [Duoneb 3mL neb] Linaclotide [Linzess] 72 mcg PO DAILY 12/21/17 12/28/17 Magnesium Hydroxide [Milk of 30 ml PO DAILYP PRN 12/21/17 12/28/17 Magnesia] Polyethylene Glycol 3350 [Miralax 17 gm PO DAILY 12/21/17 12/28/17 17gm Packet] Promethazine HCl [Phenergan 12.5 mg IM Q6HP PRN 12/21/17 12/28/17 25mg/mL 1mL vial] Quetiapine Fumarate [Seroquel] 12.5 mg PO HS 12/21/17 12/28/17 Sennosides [Senna] 8.6 mg PO BID 12/21/17 12/28/17 Budesonide 0.5 mg IH BID 12/28/17 12/28/17 Cefdinir [Omnicef 300mg Capsule] 300 mg PO BID 12/28/17 12/28/17 Allergies Allergy/AdvReac Type Severity Reaction Status Date / Time No Known Allergies Allergy Verified 12/28/17 00:16 [facility] History I have reviewed the patient's past medical history: Yes Medical History: Reports:: Hypertension, Myocardial Infarction Denies:: Diabetes Mellitus Type 1, Diabetes Mellitus Type 2 Other Surgeries: Yes: Hysterectomy-Total, Other - Social History Smoking Status: Never smoker Alcohol Intake: never Occupational Status: disabled - Psychiatric History Expresses thoughts of harming self/others: None Suicide Plan Description: No Plan Family Hx:: Cancer, Diabetes, Heart Attack ROS Obtained: Yes All systems reviewed & no additional complaints, Yes unobtainable due to mental status, Yes other (from family ) - Constitutional Constitutional: Denies headache(s) - Eyes Eyes: Denies change in vision - ENT Ears, Nose, Mouth, and Throat: Denies neck pain - Cardiovascular Cardiovascular: Denies chest pain - Respiratory Respiratory: No cough - Gastrointestinal Gastrointestingal: Denies: vomiting - Genitourinary Female Genitourinary: Denies hematuria - Musculoskeletal Musculoskeletal: Reports as per HPI, Reports joint pain, Reports limited range of motion - Integumentary/Breasts Skin/Breast: Denies rash - Neurologic Neurologic: Denies seizure-like activity Physical Exam - General General appearance: other (awake ) - Head Head exam: normocephalic - Eye Eye exam: Present: PERRL, EOMI - ENT ENT exam: Present: mucous membranes dry - Neck Neck exam: Present: trachea midline - Respiratory Respiratory exam: Absent: respiratory distress - Cardiovascular Cardiovascular exam: Present: regular rate, systolic murmur, +S4 - Abdominal Exam Abdominal exam: Present: soft - Expanded Lower Extremity Exam Right Hip/Pelvis exam: Present: tenderness, pelvis stable, pain on hip/pelvis palpation, hip pain on leg movement - Neurological Exam Neurological exam: Present: alert, CN II-XII intact, other (oriented to person ) - Skin Skin exam: Absent: rash
[2017-12-28 02:44] LABS: Basophils % 0.3 % (0.1-2.0); Eosinophils # 0.5 K/mm3 (0.0-0.4); Eosinophils % 3.8 % (0.1-12.0); Hematocrit 44.6 % (37.0-47.0); Hemoglobin 14.5 g/dL (12.2-16.2); Lymphocytes # 1.7 K/mm3 (0.7-4.5); Lymphocytes % 14.7 K/mm3 (10-50); Mean Corpuscular HGB Conc 32.5 g/dL (31.8-35.4); Mean Corpuscular Hemoglobin 27.4 pg (27.0-31.2); Mean Corpuscular Volume 84.3 fl (81-99); Monocytes # 0.7 K/mm3 (0.1-1.0); Monocytes % 6.1 % (1.7-9.3); Neutrophils # 8.8 K/mm3 (1.8-7.8); Neutrophils % 75.1 % (37.0-80.0); Platelet Count 222 K/mm3 (142-424); Red Blood Count 5.29 M/mm3 (4.20-5.40); Red Cell Distribution Width 13.6 % (11.5-17.5); White Blood Count 11.7 K/mm3 (4.8-10.8)
[2017-12-28 02:50] LABS: Anion Gap 11.8 mEq/L (5-15); Calcium 8.4 mg/dL (8.5-10.1); Potassium 3.8 mmoL/L (3.5-5.1)
[2017-12-28 02:51] LABS: Activated Partial Thrombo Time 27.4 seconds (23.6-34.0); INR 1.03 (0.9-1.1); Prothrombin Time 10.6 seconds (9.4-11.8)
[2017-12-28 07:03] LABS: Basophils % 0.3 % (0.1-2.0); Eosinophils # 0.5 K/mm3 (0.0-0.4); Eosinophils % 3.9 % (0.1-12.0); Hematocrit 45.3 % (37.0-47.0); Hemoglobin 14.5 g/dL (12.2-16.2); Lymphocytes # 1.7 K/mm3 (0.7-4.5); Lymphocytes % 13.9 K/mm3 (10-50); Mean Corpuscular Hemoglobin 27.3 pg (27.0-31.2); Mean Corpuscular Volume 85.3 fl (81-99); Monocytes # 0.7 K/mm3 (0.1-1.0); Monocytes % 5.6 % (1.7-9.3); Neutrophils # 9.6 K/mm3 (1.8-7.8); Neutrophils % 76.3 % (37.0-80.0); Platelet Count 218 K/mm3 (142-424); Red Blood Count 5.31 M/mm3 (4.20-5.40); Red Cell Distribution Width 13.6 % (11.5-17.5); White Blood Count 12.5 K/mm3 (4.8-10.8)
--- NOTE | 2017-12-28 07:27 | Pharmacy Consult Notes ---
[facility] [place] Pharmacy VTE Monitoring - Patient Demographics Admission date: 12/28/17 Report Date: 12/28/17 Time: 07:27 Allergies/Adverse Reactions: Patient Allergies No Known Allergies Allergy (Verified 12/28/17 00:16) Height: 1.63 m Weight: 172.1 kg Patient Problems: Current Active Problems SDAT (senile dementia of Alzheimer's type) (Acute) Hip fracture (Acute) - VTE Risk Labs: VTE Related Lab Results Hgb 14.5 g/dL (12.2-16.2) 12/28/17 06:30 Hct 45.3 % (37.0-47.0) 12/28/17 06:30 Plt Count 218 K/mm3 (142-424) 12/28/17 06:30 PT 10.6 seconds (9.4-11.8) 12/28/17 02:20 INR 1.03 (0.9-1.1) 12/28/17 02:20 APTT 27.4 seconds (23.6-34.0) 12/28/17 02:20 BUN 18 mg/dL (7-18) 12/28/17 02:20 Creatinine 0.84 mg/dL (0.55-1.02) 12/28/17 02:20 Estimated Creat Clear 47 mL/min (0-300) 12/28/17 02:20 Was VTE Risk Assessment Performed: Yes VTE Score: 5 VTE Risk Level: Low Risk Clinical Trial Participant: No - Prophylaxis VTE Prophylaxis Ordered?: Yes Types of VTE Prophylaxis: TEDS Knee High
--- NOTE | 2017-12-28 08:03 | History & Physical Report ---
*Admission Date: 12/28/17 *Chief complaint: Fall *History of present illness: Ms. Garcia is an 87-year-old female with history significant for dementia, COPD/chronic bronchitis was recently admitted after a fall for respiratory failure. She represented last night to the emergency room after having worsening pain since returning home to her halfway. Daughter at bedside states that the patient had been doing well and ambulating some but not at her baseline however due to developed worsening pain on . They tried [id number] pain regimens but unfortunately the pain became much more excruciating for the patient leading to their presentation to the emergency room. It was noted at that time that she had right-sided hip fracture on the same side of her fall from last week. Denies any worsening respiratory status, chest pain, syncope, new falls or trauma, nausea vomiting or diarrhea, or changes in baseline mentation. Of note, review of imaging and report from previous admission performed. Pelvis x-ray, though of poor quality, had no overt signs of acute fracture or displacement of right hip. Patient admitted to medicine for orthopedic evaluation for post hip fracture fixation. [facility] History I have reviewed the patient's past medical history: Yes Medical History: Reports:: Hypertension, Myocardial Infarction Denies:: Diabetes Mellitus Type 1, Diabetes Mellitus Type 2 Laterality Cases: Right: Other Other Surgeries: Yes: Hysterectomy-Total, Other - *Social History Educational Level: Attended College Smoking Status: Never smoker Alcohol Intake: never Occupational Status: disabled Housing: halfway Household Members: other - Psychiatric History Expresses thoughts of harming self/others: None Suicide Plan Description: No Plan *Family Hx:: Cancer, Diabetes, Heart Attack Review of Systems - Review of Systems Review of systems:: pertinent systems reviewed and negative unless documented below - *Neurologic Denies headache(s), Denies seizure-like activity Meds Home Medications Medication Instructions Recorded Confirmed Type Aspirin [Aspirin 81mg chewable 81 mg PO DAILY 06/06/17 12/28/17 History tab] Cetirizine HCl 10 mg PO DAILY 06/06/17 12/28/17 History Cranberry Fruit Extract [Cranberry] 405 mg PO DAILY 06/06/17 12/28/17 History Ipratropium [place] [Atrovent 0.5 mg IH QID 06/06/17 12/28/17 History 0.5mg/2.5mL neb] Lactulose [Lactulose 10gm/15ml 1 dose PO MOWEFR 06/06/17 12/28/17 History Oral Soln] Memantine HCl [Memantine 10mg 10 mg PO BID 06/06/17 12/28/17 History Tablet] Metoprolol Tartrate [Lopressor 12.5 mg PO BID 06/06/17 12/28/17 History 25mg tablet] Omeprazole [Omeprazole 40mg 40 mg PO DAILY 06/06/17 12/28/17 History Capsule] Acetaminophen [Acetaminophen 650mg 650 mg RC Q6HP PRN 12/21/17 12/28/17 History suppository] Bismuth Subsalicylate 30 ml PO QIDP PRN 12/21/17 12/28/17 History [Pepto-Bismol] Guaifenesin/Dextromethorphan 5 ml PO Q4HP PRN 12/21/17 12/28/17 History [Robafen Dm Cough Liquid] Ipratropium/Albuterol Sulfate 3 ml IH QID 12/21/17 12/28/17 History [Duoneb 3mL neb] Linaclotide [Linzess] 72 mcg PO DAILY 12/21/17 12/28/17 History Magnesium Hydroxide [Milk of 30 ml PO DAILYP PRN 12/21/17 12/28/17 History Magnesia] Polyethylene Glycol 3350 [Miralax 17 gm PO DAILY 12/21/17 12/28/17 History 17gm Packet] Promethazine HCl [Phenergan 12.5 mg IM Q6HP PRN 12/21/17 12/28/17 History 25mg/mL 1mL vial] Quetiapine Fumarate [Seroquel] 12.5 mg PO HS 12/21/17 12/28/17 History Sennosides [Senna] 8.6 mg PO BID 12/21/17 12/28/17 History Budesonide 0.5 mg IH BID 12/28/17 12/28/17 History Cefdinir [Omnicef 300mg Capsule] 300 mg PO BID 12/28/17 12/28/17 History predniSONE [Prednisone 20mg 20 mg PO DAILY 12/28/17 12/28/17 History Tab] Allergies Allergy/AdvReac Type Severity Reaction Status Date / Time No Known Allergies Allergy Verified 12/28/17 00:16 Exam Vital signs and Labs for Last 24 Hours: Temp Pulse Resp BP Pulse Ox 99.6 F 76 16 164/79 94 L 12/28/17 04:00 12/28/17 04:00 12/28/17 04:00 12/28/17 04:00 12/28/17 04:00 Laboratory Results - last 24 hr 12/28/17 02:20: WBC 11.7 H, RBC 5.29, Hgb 14.5, Hct 44.6, MCV 84.3, MCH 27.4, MCHC 32.5, RDW 13.6, Plt Count 222, MPV 7.0 L, Neut % (Auto) 75.1, Lymph % (Auto) 14.7, [place] % (Auto) 6.1, Eos % (Auto) 3.8, Baso % (Auto) 0.3, Neut # (Auto) 8.8 H, Lymph # (Auto) 1.7, [place] # (Auto) 0.7, Eos # (Auto) 0.5 H, Baso # (Auto) 0.0 12/28/17 02:20: PT 10.6, INR 1.03, APTT 27.4 12/28/17 02:20: Sodium 143, Potassium 3.8, Chloride 106, Carbon Dioxide 29, Anion Gap 11.8, BUN 18, Creatinine 0.84, Estimated Creat Clear 47, Estimated GFR 64, Est GFR ( Amer) 77, Glucose 114 H, Calcium 8.4 L 12/28/17 06:22: Urine Color Yellow, Urine Appearance Clear, Urine pH 7.5, Ur Specific [place] 1.010, Urine Protein Negative, Urine Glucose (UA) Negative, Urine Ketones Negative, Urine Blood Trace-i, Urine Nitrate Negative, Urine Bilirubin Negative, Urine Urobilinogen 0.2, Ur Leukocyte Esterase Negative, Urine RBC Occasional, Urine WBC None, Ur Squamous Epith Cells None, Urine Bacteria Trace 12/28/17 06:30: WBC 12.5 H, RBC 5.31, Hgb 14.5, Hct 45.3, MCV 85.3, MCH 27.3, MCHC 32.0, RDW 13.6, Plt Count 218, MPV 7.0 L, Neut % (Auto) 76.3, Lymph % (Auto) 13.9, [place] % (Auto) 5.6, Eos % (Auto) 3.9, Baso % (Auto) 0.3, Neut # (Auto) 9.6 H, Lymph # (Auto) 1.7, [place] # (Auto) 0.7, Eos # (Auto) 0.5 H, Baso # (Auto) 0.0 I & O for Last 24 hours: Intake & Output 12/25/17 12/26/17 12/27/17 12/28/17 23:59 23:59 23:59 23:59 Intake Total 124 / 124 Balance 124 / 124 Weight 77.753 kg - *Routine HEENT Exam Head: Present: normocephalic, atraumatic Eye: Present: EOMI, PERRL ENT: Present: mucous membranes moist - *Routine Neck Exam Present: supple, full ROM. Absent: JVD, lymphadenopathy, thyromegaly - *Routine Respiratory Exam Present: CTA bilaterally. Absent: prolonged expiratory phase, rales, wheezes, crackles - *Routine Cardiovascular Exam Present: RRR, Normal S1, Normal S2. Absent: murmur - *Routine Abdominal Exam Present: soft, normoactive bowel sounds. Absent: tenderness - *Routine Rectal Exam Patient deferred: visual exam - *Routine Exam Patient deferred: external exam - *Routine Extremities Exam Absent: cyanosis, clubbing, edema Comments: Right leg only rotated with leg length discrepancy compared to, hip tender to palpation - *Routine Skin Exam Present: intact. Absent: cyanosis, erythema Comments: Resolving ecchymoses on right arm - *Routine Neurological Exam Present: altered mental status Pleasantly confused, at baseline Assessment and Plan (1) Hip fracture Current visit: Yes Status: Acute Qualifiers: Encounter type: initial encounter Fracture type: closed Laterality: right Qualified Code(s): S72.001A - Fracture of unspecified part of neck of right femur, initial encounter for closed fracture Category: Medical Code(s): S72.009A - Fracture of unspecified part of neck of unspecified femur, initial encounter for closed fracture (2) SDAT (senile dementia of Alzheimer's type) Current visit: Yes Status: Chronic Category: Medical Code(s): G30.1 - Alzheimer's disease with late onset; F02.80 - Dementia in other diseases classified elsewhere without behavioral disturbance Continue home medications (3) Chronic bronchitis Current visit: No Status: Chronic Qualifiers: Chronic bronchitis type: simple Qualified Code(s): J41.0 - Simple chronic bronchitis Category: Medical Code(s): J42 - Unspecified chronic bronchitis Continue completion of antibiotic from recent discharge -Inhalers per home regimen -Supplemental oxygen if needed for goal sats greater than 92 while awake, greater than 88 (4) Fall Current visit: No Status: Acute Category: Medical Code(s): W19.XXXA - Unspecified fall, initial encounter Suspect patient may have injured hip on fall prior to previous however was asymptomatic and had no displacement of fracture therefore not diagnosed or visualized on imaging or clinical exam. Patient ambulated during previous hospitalization with assistance, per her. Suspect use may have displaced or added stress to her already weakened bone from fall. -Physical therapy after surgical station - Assessment and plan all Dx Assessment and Plan for all problems:: Preoperative risk assessment - RCRI of 1 - MACE of 1-5% - METs unquantifiable - Recommend EKG and TTE. Pre-Operative risk stratification -Ms. Garcia is an elevated risk patient for an intermediate risk operation. Elevated risk due to non-quantifiable metastases, Hx of suspected CA (suspected CAD). Recommend EKG and TTE prior to surgical intervention. Patient optimized for surgical management. Postsurgical VT E - we will discuss with orthopedics, patient would benefit from either 30 mg Lovenox twice daily for 5 weeks or consideration of short course of Lovenox with high-dose aspirin for total therapy of 5 weeks. Pending discussion with orthopedics
[2017-12-28 08:31] LABS: Anion Gap 14.2 mEq/L (5-15); Calcium 8.3 mg/dL (8.5-10.1); Potassium 4.2 mmoL/L (3.5-5.1)
--- NOTE | 2017-12-28 10:03 | Consult Report ---
*Admission Date: 12/28/17 *History of present illness: Ms. Garcia is an 87-year-old female with history significant for dementia, COPD/chronic bronchitis was recently admitted after a fall for respiratory failure. She represented last night to the emergency room after having worsening right hip pain since returning back to the residential. Patient has severe dementia and history obtained from the daughter who is at her bedside. S he states that the patient had a fall over a week ago and also developed respiratory problems for which she was admitted to hospital and discharged back to residential earlier this week. Following the the discharge patient had difficulty in ambulating and was complaining of worsening right hip pain. They tried [id number] pain regimens but unfortunately the pain became much more excruciating for the patient leading to their presentation to the emergency room last night. Following repeat x-rays in the ER she was diagnosed with a right hip fracture and was re-admitted for further management of this. There is no history of any further falls after discharge. At baseline prior to the fall patient has limited mobility and mainly transfers with some help. Review of Systems - Review of Systems Review of systems:: unable to obtain [facility] History I have reviewed the patient's past medical history: Yes Medical History: Reports:: Hypertension, Myocardial Infarction Denies:: Diabetes Mellitus Type 1, Diabetes Mellitus Type 2 Laterality Cases: Right: Other Other Surgeries: Yes: Hysterectomy-Total, Other - *Social History Educational Level: Attended College Smoking Status: Never smoker Alcohol Intake: never Occupational Status: disabled Housing: residential Household Members: other - Psychiatric History Expresses thoughts of harming self/others: None Suicide Plan Description: No Plan *Family Hx:: Cancer, Diabetes, Heart Attack Meds Home Medications Medication Instructions Recorded Confirmed Type Aspirin [Aspirin 81mg chewable 81 mg PO DAILY 06/06/17 12/28/17 History tab] Cetirizine HCl 10 mg PO DAILY 06/06/17 12/28/17 History Cranberry Fruit Extract [Cranberry] 405 mg PO DAILY 06/06/17 12/28/17 History Ipratropium [place] [Atrovent 0.5 mg IH QID 06/06/17 12/28/17 History 0.5mg/2.5mL neb] Lactulose [Lactulose 10gm/15ml 1 dose PO MOWEFR 06/06/17 12/28/17 History Oral Soln] Memantine HCl [Memantine 10mg 10 mg PO BID 06/06/17 12/28/17 History Tablet] Metoprolol Tartrate [Lopressor 12.5 mg PO BID 06/06/17 12/28/17 History 25mg tablet] Omeprazole [Omeprazole 40mg 40 mg PO DAILY 06/06/17 12/28/17 History Capsule] Acetaminophen [Acetaminophen 650mg 650 mg RC Q6HP PRN 12/21/17 12/28/17 History suppository] Bismuth Subsalicylate 30 ml PO QIDP PRN 12/21/17 12/28/17 History [Pepto-Bismol] Guaifenesin/Dextromethorphan 5 ml PO Q4HP PRN 12/21/17 12/28/17 History [Robafen Dm Cough Liquid] Ipratropium/Albuterol Sulfate 3 ml IH QID 12/21/17 12/28/17 History [Duoneb 3mL neb] Linaclotide [Linzess] 72 mcg PO DAILY 12/21/17 12/28/17 History Magnesium Hydroxide [Milk of 30 ml PO DAILYP PRN 12/21/17 12/28/17 History Magnesia] Polyethylene Glycol 3350 [Miralax 17 gm PO DAILY 12/21/17 12/28/17 History 17gm Packet] Promethazine HCl [Phenergan 12.5 mg IM Q6HP PRN 12/21/17 12/28/17 History 25mg/mL 1mL vial] Quetiapine Fumarate [Seroquel] 12.5 mg PO HS 12/21/17 12/28/17 History Sennosides [Senna] 8.6 mg PO BID 12/21/17 12/28/17 History Budesonide 0.5 mg IH BID 12/28/17 12/28/17 History Cefdinir [Omnicef 300mg Capsule] 300 mg PO BID 12/28/17 12/28/17 History predniSONE [Prednisone 20mg 20 mg PO DAILY 12/28/17 12/28/17 History Tab] Allergies Allergy/AdvReac Type Severity Reaction Status Date / Time No Known Allergies Allergy Verified 12/28/17 00:16 Exam Vital signs and Labs for Last 24 Hours: Temp Pulse Resp BP Pulse Ox 98.4 F 78 16 153/71 94 L 12/28/17 08:00 12/28/17 08:00 12/28/17 08:00 12/28/17 08:00 12/28/17 08:00 Laboratory Results - last 24 hr 12/28/17 02:20: WBC 11.7 H, RBC 5.29, Hgb 14.5, Hct 44.6, MCV 84.3, MCH 27.4, MCHC 32.5, RDW 13.6, Plt Count 222, MPV 7.0 L, Neut % (Auto) 75.1, Lymph % (Auto) 14.7, [place] % (Auto) 6.1, Eos % (Auto) 3.8, Baso % (Auto) 0.3, Neut # (Auto) 8.8 H, Lymph # (Auto) 1.7, [place] # (Auto) 0.7, Eos # (Auto) 0.5 H, Baso # (Auto) 0.0 12/28/17 02:20: PT 10.6, INR 1.03, APTT 27.4 12/28/17 02:20: Sodium 143, Potassium 3.8, Chloride 106, Carbon Dioxide 29, Anion Gap 11.8, BUN 18, Creatinine 0.84, Estimated Creat Clear 47, Estimated GFR 64, Est GFR ( Amer) 77, Glucose 114 H, Calcium 8.4 L 12/28/17 06:22: Urine Color Yellow, Urine Appearance Clear, Urine pH 7.5, Ur Specific [place] 1.010, Urine Protein Negative, Urine Glucose (UA) Negative, Urine Ketones Negative, Urine Blood Trace-i, Urine Nitrate Negative, Urine Bilirubin Negative, Urine Urobilinogen 0.2, Ur Leukocyte Esterase Negative, Urine RBC Occasional, Urine WBC None, Ur Squamous Epith Cells None, Urine Bacteria Trace 12/28/17 06:30: WBC 12.5 H, RBC 5.31, Hgb 14.5, Hct 45.3, MCV 85.3, MCH 27.3, MCHC 32.0, RDW 13.6, Plt Count 218, MPV 7.0 L, Neut % (Auto) 76.3, Lymph % (Auto) 13.9, [place] % (Auto) 5.6, Eos % (Auto) 3.9, Baso % (Auto) 0.3, Neut # (Auto) 9.6 H, Lymph # (Auto) 1.7, [place] # (Auto) 0.7, Eos # (Auto) 0.5 H, Baso # (Auto) 0.0 12/28/17 06:30: Sodium 142, Potassium 4.2, Chloride 106, Carbon Dioxide 26, Anion Gap 14.2, BUN 17, Creatinine 0.78, Estimated Creat Clear 48, Estimated GFR 70, Est GFR ( Amer) 84, Glucose 104, Calcium 8.3 L I & O for Last 24 hours: Intake & Output 12/25/17 12/26/17 12/27/17 12/28/17 11:59 11:59 11:59 11:59 Intake Total 124 / 124 Balance 124 / 124 Weight 171 lb 6.649 oz - Constitutional no acute distress, obese - *Routine HEENT Exam Head: Present: normocephalic, atraumatic Eye: Present: EOMI, PERRL ENT: Present: mucous membranes moist - *Routine Neck Exam Present: supple, trachea midline. Absent: lymphadenopathy - *Routine Respiratory Exam Present: CTA bilaterally. Absent: respiratory distress - *Routine Cardiovascular Exam Present: RRR, Normal S1, Normal S2 - *Routine Abdominal Exam Present: soft, normoactive bowel sounds. Absent: organomegaly - *Routine Extremities Exam Comments: On examination of her lower extremities, there is shortening of the right leg and the foot is externally rotated. On examination of the right hip the skin is normal. No rashes or lesions noted. She is tender over the right hip. Any attempted movements of the right hip are painful. Thigh and calf are soft and nontender. Dorsalis pedis and posterior tibial pulses are palpable 1+ bilaterally. Bilateral pedal edema present. Imaging: X-rays of her right were reviewed along with the radiologist's report. The x-rays show a displaced subcapital fracture neck of the right femur. No other acute changes noted. There is a degree of osteopenia noted. X-ray of the left hip shows no acute injuries. I also reviewed the x-ray of her pelvis AP view including both hip joints performed last week. The x-ray is of very poor quality. It does not show any overt hip fracture at that time. - *Routine Skin Exam Present: intact, warm, normal turgor - *Routine Neurological Exam Present: altered mental status Results - Labs Result Diagrams: 12/28/17 06:30 12/28/17 06:30 Labs: Abnormal lab results 12/28/17 12/28/17 12/28/17 Range/Units 02:20 02:20 06:30 WBC 11.7 H 12.5 H (4.8-10.8) K/mm3 MPV 7.0 L 7.0 L (7.4-10.4) fl Neut # (Auto) 8.8 H 9.6 H (1.8-7.8) K/mm3 Eos # (Auto) 0.5 H 0.5 H (0.0-0.4) K/mm3 Glucose 114 H (74-106) mg/dL Calcium 8.4 L (8.5-10.1) mg/dL 12/28/17 Range/Units 06:30 WBC (4.8-10.8) K/mm3 MPV (7.4-10.4) fl Neut # (Auto) (1.8-7.8) K/mm3 Eos # (Auto) (0.0-0.4) K/mm3 Glucose (74-106) mg/dL Calcium 8.3 L (8.5-10.1) mg/dL H & H 12/28/17 12/28/17 Range/Units 02:20 06:30 Hgb 14.5 14.5 (12.2-16.2) g/dL Hct 44.6 45.3 (37.0-47.0) % Coagulation 12/28/17 Range/Units 02:20 INR 1.03 (0.9-1.1) Assessment and Plan (1) Hip fracture Current visit: Yes Status: Acute Qualifiers: Encounter type: initial encounter Fracture type: closed Laterality: right Qualified Code(s): S72.001A - Fracture of unspecified part of neck of right femur, initial encounter for closed fracture Category: Medical Code(s): S72.009A - Fracture of unspecified part of neck of unspecified femur, initial encounter for closed fracture (2) SDAT (senile dementia of Alzheimer's type) Current visit: Yes Status: Chronic Category: Medical Code(s): G30.1 - Alzheimer's disease with late onset; F02.80 - Dementia in other diseases classified elsewhere without behavioral disturbance (3) Chronic bronchitis Current visit: No Status: Chronic Qualifiers: Chronic bronchitis type: simple Qualified Code(s): J41.0 - Simple chronic bronchitis Category: Medical Code(s): J42 - Unspecified chronic bronchitis (4) Fall Current visit: No Status: Acute Category: Medical Code(s): W19.XXXA - Unspecified fall, initial encounter - Assessment and plan all Dx Assessment and Plan for all problems:: Patient has severe dementia and cannot be engaged in any meaningful conversation. Therefore, I reviewed the clinical and x-ray findings with the patient's daughter who was with her in the room. I have discussed the diagnosis and management options in detail including both nonsurgical and surgical. I have recommended surgical remediation in the form of a hemiarthroplasty RIGHT hip. I explained the procedure, risks and benefits, alternatives and the expected postoperative course. I have shown her copies of the hip x-rays and explained the type of fracture and the proposed surgical procedure. The complications discussed include but are not limited to infection, injury to nerves and blood vessels, DVT and PE, femur fracture, limb length inequality, dislocation, implant failure, loosening, acetabular wear, osteolysis, periprosthetic femur fracture, heterotopic ossification, abductor weakness and a limp, incomplete relief of pain, incomplete return of function or motion, likely need for further surgery in future including revision, anesthetic/medical complications including heart attack, stroke, transfusion reactions and even . We discussed how any of these events can be devastating. We have discussed nonsurgical alternatives as well. I've explained that the patient is at a significant surgical risk due to her age, medical issues, and fragility of the bone. Patient's daughter seemed to understand and accept these risks. We have discussed nonsurgical alternatives as well. The nonoperative management would essentially consist of prolonged bed rest and traction (skeletal/skin) in bed and pain medication and has exceptionally poor outcome. This could result in nonunion and malunion of the fracture and almost certainly, the patient has a very high risk of decubitus ulcers, UTI, respiratory tract infections, DVT/PE and other complications from being bedridden. I have explained to them that the standard of care for this sort of injuries is surgical throughout the country unless the patient is very ill for surgical management. We also discussed the postoperative course including the rehab and physical therapy required. She is a resident of residential and is likely to go back there after surgery for rehab. All her questions were answered and she verbalized a good understanding. We will obtain a preoperative anesthetic evaluation. I have recommended- Electrocardiogram Type and screen Nothing by mouth Continue IV fluids DVT prophylaxis as per protocol Analgesia as needed Consent patient for a hemiarthroplasty RIGHT hip. Order 2 g of IV Ancef for preoperative prophylaxis to start half an hour before surgery. I am planning to take her for surgery at the earliest opportunity today. Thank you for the opportunity to take part in the care of this pleasant patient.
--- NOTE | 2017-12-28 22:31 | Progress Note ---
[facility] Anesthesia Checklist - Patient Identification Patient Identification: Guardian - Structural Data Admitted From: Inpatient Planned Operative Procedure/s: right bipolar hip Consent for Planned Operative Procedure(s) Verified: Yes Verified Documents: Surgical Consent, History and Physical - NPO Status Verified Time NPO: 00:00 - Additional verifications Patient : No Anesthesia Reactions: No Hx Blood Transfusions: No Blood Transfusion Reaction: No Cephalosporin Allergy: No Previous Colonoscopy: No - Cardiovascular Assessment Heart Sounds: S1 & S2 Pulse Strength: Baseline Pulse Rhythm: Regular Peripheral Edema: No - Airway Assessment C-Spine Mobility Assessed: Yes TMJ Mobility Assessed: Yes Dentition: Good Dentition - Neurological Assessment Level of Consciousness: Lethargic Hx Seizures: No Numbness or tingling in extremities: No - Anesthesia Plan Anesthesia Plan: Patient unable to respond/answer ASA Class: II Anesthesia Type: General [facility] History I have reviewed the patient's past medical history: Yes Medical History: Reports:: Hypertension, Myocardial Infarction Denies:: Diabetes Mellitus Type 1, Diabetes Mellitus Type 2 Laterality Cases: Right: Other Other Surgeries: Yes: Hysterectomy-Total, Other - *Social History Educational Level: Attended College Smoking Status: Never smoker Alcohol Intake: never Occupational Status: disabled Housing: retirement Household Members: other - Psychiatric History Expresses thoughts of harming self/others: None Suicide Plan Description: No Plan *Family Hx:: Cancer, Diabetes, Heart Attack
--- NOTE | 2017-12-28 22:32 | Progress Note ---
[facility] Anesthesia Record Part I Intake, IV Amount: 1,100 Estimated blood loss (mL): 300 Urine output (mL): 100 Blood Products used (#): none Blood Pressure: 131/46 SaO2: 94 Pulse Rate: 90 Respiratory Rate: 18 Temperature: 97.6 F Patient is:: Mask O2, Stable, Somnolent Stable to PACU at:: 22:22
--- NOTE | 2017-12-28 22:33 | Progress Note ---
[facility] Anesthesia Record Part II Discharge Time: 22:52 Destination: Medical Surgical Department PACU nurse assessment reviewed?: Yes Patient Condition:: Good Anesthesia Complications:: None
--- NOTE | 2017-12-28 22:46 | Operative Note ---
Date of procedure: 12/28/17 Pre-op Diagnosis:: Displaced subcapital femoral neck fracture, right hip Post-op Diagnosis:: Same Procedure performed:: Uncemented bipolar hemiarthroplasty, right hip Surgeon:: Ramesh Paniagua MD Corn Detasseler(s):: Bettina Waters NETWORK OPERATIONS SPECIALIST:: Marcus Sanchez Anesthesia: GETA Estimated blood loss (mL): 300 Clinical Note:: Patient is an 87-year-old female who sustained a displaced intracapsular fracture neck of RIGHT femur following a mechanical fall. A hemiarthroplasty was indicated to relieve pain and restore function. The operation is indicated and is the standard of care for this type of fracture. Operative findings:: Displaced sub capital femoral neck fracture of the RIGHT hip as noted on the preoperative hip x-rays. The articular cartilage of the acetabulum is well maintained without evidence of any significant arthritis. The proximal femur bone quality is good. Operative note:: On the day of the procedure the patient and family were met on the floor, and a physical examination was performed. The operating side and site were marked and initialed by me. I reviewed the diagnosis, natural history and management options in detail including both the nonsurgical and surgical. Given the nature of the fracture, I have recommended surgery in the form of a hemiarthroplasty of the LEFT/RIGHT hip. I discussed the procedure, risks and benefits, alternatives, potential complications and expected outcomes with the patient and family. The complications discussed include but are not limited to infection, injury to nerves and blood vessels, DVT and PE, femur fracture, limb length inequality, dislocation, implant failure, loosening, acetabular wear, osteolysis, periprosthetic femur fracture, heterotopic ossification, abductor weakness and a limp, incomplete relief of pain, incomplete return of function or motion, likely need for further surgery in future including revision, anesthetic/medical complications including heart attack, stroke, transfusion reactions and even . We discussed how any of these events can be devastating. We have discussed nonsurgical alternatives as well. We also discussed the postoperative course including the rehab and physical therapy required. The consent form was r eviewed and signed. The patient was brought to the operating room and a spinal/general anesthesia was administered by the outside machinist helper. The patient was then transferred onto the operating table and positioned in the RIGHT/LEFT lateral decubitus position with the LEFT/RIGHT hip facing upwards. All the bony prominences were well-padded. The LEFT/RIGHT lower extremity was then prepped and draped in the usual sterile fashion. The entire operative team used isolation suits and room traffic was controlled. The surgical landmarks and incision was marked over the skin with a marking pen. Ioban sterile drape was used to cover the operative site and isolate the perineum completely from the operative field. Administration of 2 g of prophylactic IV Ancef was confirmed with the anesthetic team. A preprocedure timeout was performed as per hospital protocol. A posterior approach was used to the hip joint. An electrocautery was used for hemostasis. The skin incision was made centering over the posterior border of the greater trochanter extending posteriorly in a curvilinear fashion across the buttock. The dissection was carried through subcutaneous tissue down to the fascia edwina. The fascia edwina and gluteus fascia were split and a Charnley retractor was placed. The trochanteric bursa was then removed with blunt dissection. The sciatic nerve was identified and kept out of the harm's way throughout the rest of the procedure. The hip was then internally rotated and the fat over the external rotators was cleared with a sponge. The short external rotator muscles were identified, a tag stitch was placed near their insertion, and they were divided close to the greater trochanter with electrocautery. This exposed the joint capsule which was opened with a T shaped incision and tag stitches were applied to both the leaves of the capsule. Upon entering the joint capsule, a fracture hematoma was noted as well as the displaced sub-capital femoral neck fracture. A corkscrew was then used to remove the femoral head from the acetabulum and passed to the instructional technology facilitator to be sized on the back table. It measured 47 mm. All bony fragments were then removed from the acetabulum and surrounding soft tissue. The acetabulum was then inspected and found to be clear. The articular cartilage was noted to be well maintained without any significant arthritic changes. Our attention was then turned to the preparation of proximal femur where a cutting guide was used to danny the neck for the femoral neck cut. An oscillating saw was then used to finish the femoral cut. A box osteotome was then used to remove the bone from the proximal femur. A canal entry reamer was then used to open the femoral canal paying close attention to keep the reamer in a lateral position. Next we performed femoral broaching starting with a small broach, making efforts to lateralize the broach. The broaching was continued sequentially up to size 3.5 broach. We found this to be a very good fit without any rocking. We then used the calcar reamer to finish the femoral preparation. We then performed a trial reduction using the size 3.5 broach, +0 neck and 47 mm bipolar head. The hip was taken through range of motion and tested in adduction, internal and external rotation as well as with a shuck and posteriorly directed force on a flexed hip. It was noted that the hip was very stable with these trial components throughout the range of motion. We also noted that the limb lengths were equal with these components. Next, the trial components were removed and the femur and acetabulum were irrigated with pulse lavage and suctioned out. The size 3.5 Filion accolade 132 degree femoral stem was introduced and seated to the appropriate level. This gave us a very good fit without any play whatsoever. We then irrigated and dried the Sanchez taper and then placed the definitive 47 mm bipolar femoral head assembly on the stem and tapped into place. The hip was then reduced and again taken through range of motion and noted to be stable. The limb length was also well corrected. The hip joint was then soaked with dilute Betadine solution for 3 minutes, then suctioned out and irrigated with normal saline pulse lavage. At this point I also injected the capsule and soft tissue with the local anesthetic cocktail (0.5 percent bupivacaine 200 mg +10 mg of morphine +600 g of epinephrine +750 mg of cefuroxime +30 mg of ketorolac diluted in normal saline to make up a total volume of 120 mL). We confirmed good hemostasis and then proceeded to close the wound. The capsule was closed with interrupted #1 Vicryl sutures followed by reattachment of the external rotators to the greater trochanter with #1 Vicryl sutures. Next the fascia edwina and the gluteus fascia were closed with #1 Vicryl sutures. The wound was then again irrigated copiously with pulse lavage and suctioned dry. Next the subcutaneous tissues were closed with 2-0 Vicryl sutures. The skin was closed with na/ 4-0 Monocryl subcuticular sutures, Dermabond and Steri-Strips. The skin and subcutaneous tissue were infiltrated with 30 mL of 0.5 percent Marcaine for postoperative analgesia. Sterile dressings were applied consisting of Xeroform, 4 x 4 and ABDs as well as adhesive tape. No drains were placed. The patient was then transferred from the operating table onto the bed. The leg lengths were again checked in supine position and noted to be equal. An abduction pillow was placed between the legs. The patient was then reversed from the anesthetic and transported to the postoperative recovery area in a stable condition. She/He tolerated the procedure well and there were no immediate complications. Swab, needle and instrument counts were correct according to the scrub team at the end of the procedure. Portable X-rays of the LEFT/RIGHT hip AP and lateral views were obtained in the recovery area and noted to be satisfactory. Postoperatively, continue standard precautions for a posterior hip approach. To mobilize weightbearing as tolerated with the help of a walker by physical therapist and to commence standard physical therapy and precautions for a posterior hip approach. Implant: [employer] Accolade TMGF plus 127 degree neck angle V 40, hip stem- size 4 Filion UHR universal head bipolar component- 47 mm outer diameter/28 mm inner diameter Derrick LFIT V40 femoral head, 28 mm outer diameter, -4 mm offset (Industry residential sales representative: Cayetano Torres from [employer]) Condition: stable Disposition: floor Specimens:: None Complications:: None
[2017-12-29 06:34] LABS: Basophils # 0.1 K/mm3 (0-0.2); Basophils % 0.2 % (0.1-2.0); Eosinophils % 0.1 % (0.1-12.0); Hematocrit 36.7 % (37.0-47.0); Lymphocytes # 1.3 K/mm3 (0.7-4.5); Lymphocytes % 5.9 K/mm3 (10-50); Mean Corpuscular HGB Conc 31.4 g/dL (31.8-35.4); Mean Corpuscular Hemoglobin 27.4 pg (27.0-31.2); Mean Corpuscular Volume 87.2 fl (81-99); Mean Platelet Volume 7.2 fl (7.4-10.4); Monocytes # 0.9 K/mm3 (0.1-1.0); Monocytes % 4.3 % (1.7-9.3); Neutrophils # 19.5 K/mm3 (1.8-7.8); Neutrophils % 89.5 % (37.0-80.0); Platelet Count 263 K/mm3 (142-424); Red Blood Count 4.21 M/mm3 (4.20-5.40); Red Cell Distribution Width 13.8 % (11.5-17.5); White Blood Count 21.8 K/mm3 (4.8-10.8)
[2017-12-29 06:55] LABS: Albumin Level 2.6 gm/dL (3.4-5.0); Albumin/Globulin Ratio 0.9 (1.1-1.8); Anion Gap 12.3 mEq/L (5-15); Bilirubin,Total 0.4 mg/dL (0.2-1.0); Calcium 7.7 mg/dL (8.5-10.1); Potassium 5.3 mmoL/L (3.5-5.1); Total Protein,Serum 5.6 gm/dL (6.4-8.2)
[2017-12-29 07:12] LABS: Hemoglobin 11.5 g/dL (12.2-16.2)
--- NOTE | 2017-12-29 07:25 | Progress Note ---
Internal Medicine - PN: Subj *Date: 12/29/17 *Time: 07:22 Interval history: Patient is postoperative day #1 from ORIF of hip fracture. Has been sleeping and somnolent through the night. Does respond to painful stimuli with some groaning when she is turned by nursing staff. Has not aroused much to tactile or verbal stimuli. Exam Vital signs and Labs for Last 24 Hours: Temp Pulse Resp BP Pulse Ox 97.9 F 91 H 16 96/59 96 12/29/17 06:30 12/29/17 06:30 12/29/17 06:30 12/29/17 06:30 12/29/17 06:30 Laboratory Results - last 24 hr 12/28/17 06:22: Urine RBC Occasional, Urine WBC None, Ur Squamous Epith Cells None, Urine Bacteria Trace 12/28/17 06:30: Sodium 142, Potassium 4.2, Chloride 106, Carbon Dioxide 26, Anion Gap 14.2, BUN 17, Creatinine 0.78, Estimated Creat Clear 48, Estimated GFR 70, Est GFR ( Amer) 84, Glucose 104, Calcium 8.3 L 12/28/17 10:50: Blood Type O Positive, Antibody Screen Negative 12/29/17 06:20: WBC 21.8 H* D, RBC 4.21, Hgb 11.5 L D, Hct 36.7 L, MCV 87.2, MCH 27.4, MCHC 31.4 L, RDW 13.8, Plt Count 263, MPV 7.2 L, Neut % (Auto) 89.5 H, Lymph % (Auto) 5.9 L, [place] % (Auto) 4.3, Eos % (Auto) 0.1, Baso % (Auto) 0.2, Neut # (Auto) 19.5 H, Lymph # (Auto) 1.3, [place] # (Auto) 0.9, Eos # (Auto) 0.0, Baso # (Auto) 0.1 12/29/17 06:20: Sodium 140, Potassium 5.3 H D, Chloride 107, Carbon Dioxide 26, Anion Gap 12.3, BUN 28 H D, Creatinine 1.43 H D, Estimated Creat Clear 36, Estimated GFR 35 L, Est GFR ( Amer) 42 L D, Glucose 133 H D, Calcium 7.7 L, Total Bilirubin 0.4, AST 11 L, ALT 16, Alkaline Phosphatase 75, Total Protein 5.6 L, Albumin 2.6 L, Globulin 3.0, Albumin/Globulin Ratio 0.9 L I & O for Last 24 hours: Intake & Output 12/26/17 12/27/17 12/28/17 12/29/17 11:59 11:59 11:59 11:59 Intake Total 124 / 124 1883 / 1883 Output Total 1025 / 1025 Balance 124 / 124 858 / 858 Weight 169 lb 2 oz 186 lb 7 oz Narrative: Patient is on facemask oxygen with 90% O2 saturations. Oropharynx clear, no JVD. ENT exam otherwise unchanged. Anterior lung whitaker have rhonchi with diminished air movement in the bases, really at her baseline, heart rate regular. Abdomen soft. Legs are in the abductor splint post hip fracture. Good circulation in the feet and good capillary refill. 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 On appropriate anticoagulation therapy. Watch CBC tomorrow along with electrolyte levels. Patient's exceedingly high risk for postoperative complications. Specifically pneumonia as she is unable to do incentive spirometry. We will watch oxygen levels as tolerated, pulmonary toilet as we can. Discussed case with caregiver who is here this morning. Beta-june and some of her home medications have been restarted.
[2017-12-29 07:52] LABS: Lymphocytes % 4 % (10-50); Monocytes % 4 % (2-9); Neutrophils % 89 % (42-76); Total Cells Counted 100
--- NOTE | 2017-12-29 22:10 | Progress Note ---
Subjective Date: 12/29/17 Time: 22:15 Principal diagnosis: Fracture neck of femur, right hip Interval history: Patient is status post right hip hemiarthroplasty post op day #1. Patient is sitting out in the chair. Patient has been grossly on her relative says she is doing well. Patient has severe dementia at baseline does not communicate. PN: Obj Ex Vital signs: Temp Pulse Resp BP Pulse Ox 98.6 F 88 18 119/53 94 L 12/29/17 19:42 12/29/17 20:58 12/29/17 19:42 12/29/17 19:42 12/29/17 19:42 Narrative: Laboratory Results - last 24 hr 12/29/17 06:20: WBC 21.8 H* D, RBC 4.21, Hgb 11.5 L D, Hct 36.7 L, MCV 87.2, MCH 27.4, MCHC 31.4 L, RDW 13.8, Plt Count 263, MPV 7.2 L, Neut % (Auto) 89.5 H, Lymph % (Auto) 5.9 L, [place] % (Auto) 4.3, Eos % (Auto) 0.1, Baso % (Auto) 0.2, Neut # (Auto) 19.5 H, Lymph # (Auto) 1.3, [place] # (Auto) 0.9, Eos # (Auto) 0.0, Baso # (Auto) 0.1, Total Counted 100, Neutrophils % (Manual) 89 H, Band Neutrophils % 3.0, Lymphocytes % (Manual) 4 L, Monocytes % (Manual) 4, Platelet Estimate Normal, RBC Morphology Not Reportable 12/29/17 06:20: Sodium 140, Potassium 5.3 H D, Chloride 107, Carbon Dioxide 26, Anion Gap 12.3, BUN 28 H D, Creatinine 1.43 H D, Estimated Creat Clear 36, Estim ated GFR 35 L, Est GFR ( Amer) 42 L D, Glucose 133 H D, Calcium 7.7 L, Total Bilirubin 0.4, AST 11 L, ALT 16, Alkaline Phosphatase 75, Total Protein 5.6 L, Albumin 2.6 L, Globulin 3.0, Albumin/Globulin Ratio 0.9 L Exam General appearance: Drowsy, arousable to painful stimuli, no acute distress Cardiovascular: regular rate & rhythm Respiratory: On facemask oxygen, no acute respiratory distress noted ABD: Soft Genitourinary: Catheter in situ On examination of the lower extremities the limb lengths are equal. Abductor pillow in place. On examination of the right the dressings are clean, dry and intact. Distal pulses are 1+. Postoperative check x-ray satisfactory with good alignment and positioning of the implant. - Urinary Catheter Management Yung Cath placed during this visit: yes Urethral indwelling: Yes Reason for continuing: Surgical procedure Insertion date: 12/28/17 Insertion time: 06:20 Progress Note: A&P (1) Hip fracture Status: Acute Assessment and plan: Post op patient plan I reviewed the clinical and operative findings and procedure performed with the patient's relative. Patient can be transferred/mobilized weightbearing on the right side if her medical condition allows for this. Continue DVT prophylaxis. Continue abduction pillow when in bed and continue standard precautions for the posterior approach hip replacement. Medical management as per Dr. Hardy. Current Visit: Yes (2) SDAT (senile dementia of Alzheimer's type) Status: Chronic Current Visit: Yes (3) Chronic bronchitis Status: Chronic Current Visit: No (4) Fall Status: Acute Current Visit: No
[2017-12-30 06:16] LABS: Basophils % 0.1 % (0.1-2.0); Eosinophils # 0.2 K/mm3 (0.0-0.4); Eosinophils % 1.4 % (0.1-12.0); Hematocrit 30.3 % (37.0-47.0); Lymphocytes % 13.3 K/mm3 (10-50); Mean Corpuscular HGB Conc 32.3 g/dL (31.8-35.4); Mean Corpuscular Hemoglobin 27.9 pg (27.0-31.2); Mean Corpuscular Volume 86.3 fl (81-99); Mean Platelet Volume 7.3 fl (7.4-10.4); Monocytes # 1.2 K/mm3 (0.1-1.0); Neutrophils # 11.8 K/mm3 (1.8-7.8); Neutrophils % 77.3 % (37.0-80.0); Platelet Count 222 K/mm3 (142-424); Red Blood Count 3.51 M/mm3 (4.20-5.40); Red Cell Distribution Width 13.9 % (11.5-17.5); White Blood Count 15.2 K/mm3 (4.8-10.8)
[2017-12-30 06:24] LABS: Hemoglobin 9.8 g/dL (12.2-16.2)
[2017-12-30 06:45] LABS: Anion Gap 9.6 mEq/L (5-15); Calcium 7.5 mg/dL (8.5-10.1); Potassium 4.6 mmoL/L (3.5-5.1)
[2017-12-30 07:13] LABS: Eosinophils % 1 % (0-3); Lymphocytes % 11 % (10-50); Monocytes % 5 % (2-9); Neutrophils % 78 % (42-76); Total Cells Counted 100
[2017-12-30 07:14] LABS: RBC Morphology Normal
--- NOTE | 2017-12-30 08:07 | Progress Note ---
Internal Medicine - PN: Subj *Date: 12/30/17 *Time: 08:05 Interval history: Patient has been able to eat some soft foods for supper last night and for breakfast according to her caregiver. She continues to receive appropriate pain medication. Unfortunately spiked a fever early this morning over 100F. Exam Vital signs and Labs for Last 24 Hours: Temp Pulse Resp BP Pulse Ox 97.8 F 105 H 18 135/63 96 12/30/17 07:36 12/30/17 07:36 12/30/17 07:36 12/30/17 07:36 12/30/17 07:36 Laboratory Results - last 24 hr 12/30/17 05:45: WBC 15.2 H D, RBC 3.51 L, Hgb 9.8 L D, Hct 30.3 L, MCV 86.3, MCH 27.9, MCHC 32.3, RDW 13.9, Plt Count 222, MPV 7.3 L, Neut % (Auto) 77.3, Lymph % (Auto) 13.3, [place] % (Auto) 8.0, Eos % (Auto) 1.4, Baso % (Auto) 0.1, Neut # (Auto) 11.8 H, Lymph # (Auto) 2.0, [place] # (Auto) 1.2 H, Eos # (Auto) 0.2, Baso # (Auto) 0.0, Total Counted 100, Neutrophils % (Manual) 78 H, Band Neutrophils % 5.0, Lymphocytes % (Manual) 11, Monocytes % (Manual) 5, Eosinophils % (Manual) 1, Platelet Estimate Normal, RBC Morphology Normal 12/30/17 05:45: Sodium 136, Potassium 4.6, Chloride 106, Carbon Dioxide 25, Anion Gap 9.6, BUN 36 H D, Creatinine 1.79 H D, Estimated Creat Clear 28, Estimated GFR 27 L, Est GFR ( Amer) 32 L D, Glucose 126 H, Calcium 7.5 L I & O for Last 24 hours: Intake & Output 12/27/17 12/28/17 12/29/17 12/30/17 11:59 11:59 11:59 11:59 Intake Total 124 / 124 1883 / 1883 4154 / 4154 Output Total 1025 / 1025 500 / 500 Balance 124 / 124 858 / 858 3654 / 3654 Weight 169 lb 2 oz 186 lb 7 oz 180 lb 5 oz Narrative: Currently afebrile. Blood pressure and pulse are unremarkable. Anterior lung whitaker are fairly clear. Symmetric air movement. Patient is responsive to tactile stimuli and loud verbal stimuli but is not engaging in conversation and will fall asleep very quickly. Abdomen soft and nontender. Oropharynx clear, no JVD. Distal extremities are without significant edema. Good capillary refill and p erfusion. Yung catheter draining clear yellow urine. Urine output has picked up slightly. Assessment and Plan (1) Hip fracture Current visit: Yes Status: Acute Qualifiers: Encounter type: initial encounter Fracture type: closed Laterality: right Qualified Code(s): S72.001A - Fracture of unspecified part of neck of right femur, initial encounter for closed fracture Category: Medical Code(s): S72.009A - Fracture of unspecified part of neck of unspecified femur, initial encounter for closed fracture Given patient's significant comorbidities, poor mobility and need for I/O monitoring we will leave Yung catheter in place (2) SDAT (senile dementia of Alzheimer's type) Current visit: Yes Status: Chronic Category: Medical Code(s): G30.1 - Alzheimer's disease with late onset; F02.80 - Dementia in other diseases classified elsewhere without behavioral disturbance (3) Chronic bronchitis Current visit: No Status: Chronic Qualifiers: Chronic bronchitis type: simple Qualified Code(s): J41.0 - Simple chronic bronchitis Category: Medical Code(s): J42 - Unspecified chronic bronchitis (4) Fall Current visit: No Status: Acute Category: Medical Code(s): W19.XXXA - Unspecified fall, initial encounter (5) Postoperative fever Current visit: Yes Status: Acute Category: Medical Code(s): R50.82 - Postprocedural fever Postoperative status seems to be doing well from an orthopedic standpoint. In regards to her fever: White blood cell count has declined, which is encouraged. I will check portable chest x-ray and blood culture today. Follow white count tomorrow. I will not start antibiotics at this point given her good lung exam and otherwise improving white count. Patient's mental status remains significantly obtunded from anesthesia and pain medication. Overall her prognosis remains somewhat poor for complete recovery.
--- NOTE | 2017-12-30 15:12 | Progress Note ---
Subjective Date: 12/30/17 Time: 15:00 Principal diagnosis: Fracture neck of femur, right hip Interval history: Patient is status post hemiarthroplasty right hip, post op day #2. Patient is lying down in bed and her family is with her in the room. Patient is still very drowsy and noncommunicative. She is responding to painful stimuli. She spiked a temperature during the early hours of this morning. Family says she started eating and drinking a little bit. PN: Obj Ex Vital signs: Temp Pulse Resp BP Pulse Ox 97.8 F 90 18 135/63 95 12/30/17 07:36 12/30/17 14:32 12/30/17 07:36 12/30/17 07:36 12/30/17 08:00 Narrative: Laboratory Results - last 24 hr 12/30/17 05:45: WBC 15.2 H D, RBC 3.51 L, Hgb 9.8 L D, Hct 30.3 L, MCV 86.3, MCH 27.9, MCHC 32.3, RDW 13.9, Plt Count 222, MPV 7.3 L, Neut % (Auto) 77.3, Lymph % (Auto) 13.3, [place] % (Auto) 8.0, Eos % (Auto) 1.4, Baso % (Auto) 0.1, Neut # (Auto) 11.8 H, Lymph # (Auto) 2.0, [place] # (Auto) 1.2 H, Eos # (Auto) 0.2, Baso # (Auto) 0.0, Total Counted 100, Neutrophils % (Manual) 78 H, Band Neutrophils % 5.0, Lymphocytes % (Manual) 11, Monocytes % (Manual) 5, Eosinophils % (Manual) 1, Platelet Estimate Normal, RBC Morphology Normal 12/30/17 05:45: Sodium 136, Potassium 4.6, Chloride 106, Carbon Dioxide 25, Anion Gap 9.6, BUN 36 H D, Creatinine 1.79 H D, Estimated Creat Clear 28, Estimated GFR 27 L, Est GFR ( Amer) 32 L D, Glucose 126 H, Calcium 7.5 L Exam General appearance: no acute distress Cardiovascular: regular rate & rhythm Respiratory: no respiratory distress noted ABD: soft and non tender Genitourinary: Catheter in situ. On examination of the lower extremities the limb lengths are equal. Thigh and calf are soft and nontender. On examination of the right hip the dressings are clean, dry and intact. The dressings were changed by me. There is a minimal of soakage of the dressings. The wound looks clean and healthy. No evidence of any infection or other complications noted. Distal pulses are 1+. - Urinary Catheter Management Yung Cath placed during this visit: yes Urethral indwelling: Yes Reason for continuing: Surgical procedure Insertion date: 12/28/17 Insertion time: 06:20 Progress Note: A&P (1) Hip fracture Status: Acute Assessment and plan: I reviewed the clinical findings and progress with the patient's family. She appears to be doing well from an orthopedic standpoint. The dressings were changed and wound appears healthy. No erythema, discharge or any signs of infection noted. She has not been mobilized yet because of her medical condition. Continue abduction pillow when in bed for 6 weeks and also continue standard precautions for the posterior approach hip replacement. Continue PT/OT, pain management with as needed analgesics. From an orthopedic standpoint, she can be transferred back to the correction if medically appropriate. Recommend DVT prophylaxis for 5 weeks postop- the appropriate agents include Lovenox, Aspirin 325 mg, Xarelto (Rivaroxaban), Eliquis (apixaban) and Coumadin. Follow-up in my office in 2 weeks time with check x-ray. Medical management as per Dr. Hardy. Current Visit: Yes (2) SDAT (senile dementia of Alzheimer's type) Status: Chronic Current Visit: Yes (3) Chronic bronchitis Status: Chronic Current Visit: No (4) Fall Status: Acute Current Visit: No (5) Postoperative fever Status: Acute Current Visit: Yes
[2017-12-31 06:01] LABS: Anion Gap 8.6 mEq/L (5-15); Calcium 7.5 mg/dL (8.5-10.1); Potassium 4.6 mmoL/L (3.5-5.1)
[2017-12-31 06:04] LABS: Basophils % 0.2 % (0.1-2.0); Eosinophils # 0.3 K/mm3 (0.0-0.4); Eosinophils % 2.7 % (0.1-12.0); Hematocrit 24.6 % (37.0-47.0); Lymphocytes # 1.8 K/mm3 (0.7-4.5); Mean Corpuscular Hemoglobin 29.3 pg (27.0-31.2); Mean Corpuscular Volume 86.3 fl (81-99); Mean Platelet Volume 7.3 fl (7.4-10.4); Monocytes # 0.9 K/mm3 (0.1-1.0); Monocytes % 7.7 % (1.7-9.3); Neutrophils # 8.7 K/mm3 (1.8-7.8); Neutrophils % 74.5 % (37.0-80.0); Platelet Count 217 K/mm3 (142-424); Red Blood Count 2.85 M/mm3 (4.20-5.40); Red Cell Distribution Width 13.9 % (11.5-17.5); White Blood Count 11.7 K/mm3 (4.8-10.8)
[2017-12-31 06:18] LABS: Hemoglobin 8.3 g/dL (12.2-16.2)
--- NOTE | 2017-12-31 08:23 | Progress Note ---
Internal Medicine - PN: Subj *Date: 12/31/17 *Time: 08:21 Interval history: Patient is somewhat more alert, ate a little bit more breakfast according to her caregiver this morning. Did have a good bowel movement after suppository yesterday. Exam Vital signs and Labs for Last 24 Hours: Temp Pulse Resp BP Pulse Ox 97.7 F 114 H 18 123/60 95 12/31/17 07:36 12/31/17 07:36 12/31/17 07:36 12/31/17 07:36 12/31/17 07:36 Laboratory Results - last 24 hr 12/31/17 05:19: WBC 11.7 H, RBC 2.85 L, Hgb 8.3 L D, Hct 24.6 L, MCV 86.3, MCH 29.3, MCHC 34.0, RDW 13.9, Plt Count 217, MPV 7.3 L, Neut % (Auto) 74.5, Lymph % (Auto) 15.0, [place] % (Auto) 7.7, Eos % (Auto) 2.7, Baso % (Auto) 0.2, Neut # (Aut o) 8.7 H, Lymph # (Auto) 1.8, [place] # (Auto) 0.9, Eos # (Auto) 0.3, Baso # (Auto) 0.0 12/31/17 05:19: Sodium 134 L, Potassium 4.6, Chloride 107, Carbon Dioxide 23, Anion Gap 8.6, BUN 25 H D, Creatinine 1.14 H D, Estimated Creat Clear 46, Estimated GFR 45 L, Est GFR ( Amer) 54 L D, Glucose 103, Calcium 7.5 L I & O for Last 24 hours: Intake & Output 12/28/17 12/29/17 12/30/17 12/31/17 11:59 11:59 11:59 11:59 Intake Total 124 / 124 1883 / 1883 4154 / 4154 720 / 720 Output Total 1025 / 1025 500 / 500 880 / 880 Balance 124 / 124 858 / 858 3654 / 3654 -160 / -160 Weight 169 lb 2 oz 186 lb 7 oz 180 lb 5 oz 187 lb 2 oz Narrative: Oropharynx clear, no JVD. Lungs have fairly good air entry persist x-ray report reviewed from yesterday. Abdomen soft. Extremities are well-perfused patient is minimally responsive to tactile and verbal stimuli Assessment and Plan (1) Hip fracture Current visit: Yes Status: Acute Qualifiers: Encounter type: initial encounter Fracture type: closed Laterality: right Qualified Code(s): S72.001A - Fracture of unspecified part of neck of right femur, initial encounter for closed fracture Category: Medical Code(s): S72.009A - Fracture of unspecified part of neck of unspecified femur, initial encounter for closed fracture (2) SDAT (senile dementia of Alzheimer's type) Current visit: Yes Status: Chronic Category: Medical Code(s): G30.1 - Alzheimer's disease with late onset; F02.80 - Dementia in other diseases classified elsewhere without behavioral disturbance (3) Chronic bronchitis Current visit: No Status: Chronic Qualifiers: Chronic bronchitis type: simple Qualified Code(s): J41.0 - Simple chronic bronchitis Category: Medical Code(s): J42 - Unspecified chronic bronchitis (4) Fall Current visit: No Status: Acute Category: Medical Code(s): W19.XXXA - Unspecified fall, initial encounter (5) Postoperative fever Current visit: Yes Status: Acute Category: Medical Code(s): R50.82 - Postprocedural fever (6) Postoperative anemia due to acute blood loss Current visit: Yes Status: Acute Category: Medical Code(s): D62 - Acute posthemorrhagic anemia Check blood count this morning. Transfuse if needed. PT evaluation. (7) Left lower lobe pneumonia Current visit: Yes Status: Acute Category: Medical Code(s): J18.1 - Lobar pneumonia, unspecified organism Postoperative pneumonia, ceftriaxone continues. Respiratory status stable.
[2017-12-31 08:59] LABS: Basophils % 0.2 % (0.1-2.0); Eosinophils # 0.3 K/mm3 (0.0-0.4); Eosinophils % 2.5 % (0.1-12.0); Hematocrit 24.7 % (37.0-47.0); Hemoglobin 8.1 g/dL (12.2-16.2); Lymphocytes # 1.7 K/mm3 (0.7-4.5); Lymphocytes % 15.8 K/mm3 (10-50); Mean Corpuscular HGB Conc 32.7 g/dL (31.8-35.4); Mean Corpuscular Hemoglobin 28.4 pg (27.0-31.2); Mean Corpuscular Volume 86.8 fl (81-99); Mean Platelet Volume 7.9 fl (7.4-10.4); Monocytes # 0.9 K/mm3 (0.1-1.0); Monocytes % 7.8 % (1.7-9.3); Neutrophils % 73.7 % (37.0-80.0); Platelet Count 215 K/mm3 (142-424); Red Blood Count 2.84 M/mm3 (4.20-5.40); White Blood Count 10.9 K/mm3 (4.8-10.8)
[2017-12-31 09:16] LABS: Anion Gap 11.4 mEq/L (5-15); Calcium 7.6 mg/dL (8.5-10.1); Potassium 4.4 mmoL/L (3.5-5.1)
--- NOTE | 2017-12-31 15:45 | Discharge Summary ---
General - General Admission date:: 12/28/17 Discharge date: 01/01/18 HPI HPI: Ms. Garcia is an 87-year-old female with history significant for dementia, COPD/chronic bronchitis was recently admitted after a fall for respiratory failure. She represented last night to the emergency room after having worsening right hip pain since returning back to the retirement. Patient has severe dementia and history obtained from the daughter who is at her bedside. She states that the patient had a fall over a week ago and also developed respiratory problems for which she was admitted to hospital and discharged back to retirement earlier this week. Following the the discharge patient had difficulty in ambulating and was complaining of worsening right hip pain. They tried [id number] pain regimens but unfortunately the pain became much more excruciating for the patient leading to their presentation to the emergency room last night. Following repeat x-rays in the ER she was diagnosed with a right hip fracture and was re-admitted for further management of this. There is no history of any further falls after discharge. At baseline prior to the fall patient has limited mobility and mainly transfers with some help. Hospital Course Hospital Course: Radha is an 87-year-old female who presented with worsening hip pain and found to have right hip fracture. Suspect it was sustained during a fall a week before prior to her admission for pneumonia. No image findings of fracture time however pain became worse if she bears weight at her retirement. Which likely caused separation of sustained injury. Patient was admitted to medicine for management. Orthopedics was consulted with decision to move forward with ORIF. Patient tolerated procedure well. Physical therapy assessed patient and re commended rehabilitation for goal of achieving baseline ambulatory function. Monitored hemoglobin as there was some blood loss during procedure. Received transplant on day of discharge due to slight decrease in hemoglobin after use of anticoagulants. Additionally patient noted to have postop fever with finding of lower lobe consolidation consistent with either new onset lobar pneumonia or resolution of previous pneumonia from a week before. Decision was made to initiate treatment with 5 days of antibiotics consisting of ceftriaxone 1 day and completion of course with Omnicef fever resolved, remained hemodynamically stable for remainder of admission back to baseline on discharge. Plan to discharge to retirement for physical therapy and goal of ambulation at baseline function prior to injury. Continue anticoagulation with high-dose aspirin 325 mg once a day. Medically stable for discharge. Objective Vital signs: Temp Pulse Resp BP Pulse Ox 97.9 F 85 18 155/75 90 L 12/31/17 12:00 12/31/17 14:34 12/31/17 12:00 12/31/17 12:00 12/31/17 14:34 - *Routine HEENT Exam Head: Present: normocephalic, atraumatic Eye: Present: EOMI, PERRL ENT: Present: mucous membranes moist - *Routine Neck Exam Present: supple, full ROM. Absent: lymphadenopathy - *Routine Respiratory Exam Present: CTA bilaterally. Absent: accessory muscle use, prolonged expiratory phase, rales, wheezes - *Routine Cardiovascular Exam Present: RRR, Normal S1, Normal S2. Absent: murmur - *Routine Abdominal Exam Present: soft, normoactive bowel sounds - *Routine Rectal Exam Patient deferred: visual exam - *Routine Exam Patient deferred: external exam - *Routine Extremities Exam Absent: cyanosis, clubbing, edema Comments: Tender to palpation along right hip, surgical wound clean dry and intact. right shoulder tender with passive motion consistent with arthritis and right shoulder - *Routine Skin Exam Present: intact. Absent: cyanosis, erythema - *Routine Neurological Exam Present: alert, altered mental status Results Labs on day of discharge: Labs from last 24 hours 12/31/17 12/31/17 12/31/17 08:50 08:50 05:19 WBC 10.9 H RBC 2.84 L Hgb 8.1 L Hct 24.7 L MCV 86.8 MCH 28.4 MCHC 32.7 RDW 14.0 Plt Count 215 MPV 7.9 Neut % (Auto) 73.7 Lymph % (Auto) 15.8 [place] % (Auto) 7.8 Eos % (Auto) 2.5 Baso % (Auto) 0.2 Neut # (Auto) 8.0 H Lymph # (Auto) 1.7 [place] # (Auto) 0.9 Eos # (Auto) 0.3 Baso # (Auto) 0.0 Sodium 140 134 L Potassium 4.4 4.6 Chloride 109 H 107 Carbon Dioxide 24 23 Anion Gap 11.4 8.6 BUN 26 H 25 H D Creatinine 1.19 H 1.14 H D Estimated Creat Clear 44 46 Estimated GFR 43 L 45 L Est GFR ( Amer) 52 L 54 L D Glucose 128 H D 103 Calcium 7.6 L 7.5 L 12/31/17 05:19 WBC 11.7 H RBC 2.85 L Hgb 8.3 L D Hct 24.6 L MCV 86.3 MCH 29.3 MCHC 34.0 RDW 13.9 Plt Count 217 MPV 7.3 L Neut % (Auto) 74.5 Lymph % (Auto) 15.0 [place] % (Auto) 7.7 Eos % (Auto) 2.7 Baso % (Auto) 0.2 Neut # (Auto) 8.7 H Lymph # (Auto) 1.8 [place] # (Auto) 0.9 Eos # (Auto) 0.3 Baso # (Auto) 0.0 Sodium Potassium Chloride Carbon Dioxide Anion Gap BUN Creatinine Estimated Creat Clear Estimated GFR Est GFR ( Amer) Glucose Calcium DS: Diagnosis - Discharge Diagnosis (1) Hip fracture Status: Acute (2) SDAT (senile dementia of Alzheimer's type) Status: Chronic (3) Chronic bronchitis Status: Chronic (4) Fall Status: Acute (5) Postoperative fever Status: Acute (6) Postoperative anemia due to acute blood loss Status: Acute (7) Left lower lobe pneumonia Status: Acute Discharge Plan - Patient Discharge Instructions ACTIVITY: Ambulate as tolerated DIET: continue same diet Patient Instructions: DI for Pneumonia -- Adult, DI for Hip Fracture - Follow up Plan Follow up with: Marcus Hardy MD [Primary Care Provider] - 1 week Disposition: er [facility] Home Medications: Home Medications Medication Instructions Recorded Confirmed Type Cetirizine HCl 10 mg PO DAILY 06/06/17 12/28/17 History Ipratropium [place] [Atrovent 0.5 mg IH QID 06/06/17 12/28/17 History 0.5mg/2.5mL neb] Lactulose [Lactulose 10gm/15ml 1 dose PO MOWEFR 06/06/17 12/28/17 History Oral Soln] Metoprolol Tartrate [Lopressor 12.5 mg PO BID 06/06/17 12/28/17 History 25mg tablet] Omeprazole [Omeprazole 40mg 40 mg PO DAILY 06/06/17 12/28/17 History Capsule] Acetaminophen [Acetaminophen 650mg 650 mg RC Q6HP PRN 12/21/17 12/28/17 History suppository] Bismuth Subsalicylate 30 ml PO QIDP PRN 12/21/17 12/28/17 History [Pepto-Bismol] Ipratropium/Albuterol Sulfate 3 ml IH QID 12/21/17 12/28/17 History [Duoneb 3mL neb] Linaclotide [Linzess] 72 mcg PO DAILY 12/21/17 12/28/17 History Magnesium Hydroxide [Milk of 30 ml PO DAILYP PRN 12/21/17 12/28/17 History Magnesia] Polyethylene Glycol 3350 [Miralax 17 gm PO DAILY 12/21/17 12/28/17 History 17gm Packet] Promethazine HCl [Phenergan 12.5 mg IM Q6HP PRN 12/21/17 12/28/17 History 25mg/mL 1mL vial] Sennosides [Senna] 8.6 mg PO BID 12/21/17 12/28/17 History predniSONE [Prednisone 20mg 20 mg PO DAILY 12/28/17 12/28/17 History Tab] Prescriptions/Medication Reconciliation: New Acetaminophen [Acetaminophen 325mg tab] 650 mg PO Q6HP PRN tablet PRN Reason: Mild To Moderate Pain Budesonide [Pulmicort 0.5mg/2mL neb] 0.5 mg IH BIDRT ampul.neb Docusate Sodium [Docusate Sodium 100mg Cap] 100 mg PO BIDP PRN capsule PRN Reason: Constipation Ipratropium/Albuterol Sulfate [Duoneb 3mL neb] 3 ml IH QIDRT ampul.neb Memantine HCl [Memantine 10mg Tablet] 10 mg PO BID tablet Hydrocod/Acet 5/325 mg [[place] 5/325mg tablet] 1 tab PO Q4HP PRN 3 Days #12 tab PRN Reason: Moderate To Severe Pain Quetiapine Fumarate [Seroquel 25mg tablet] 12.5 mg PO HS tablet Continue Metoprolol Tartrate [Lopressor 25mg tablet] 12.5 mg PO BID Omeprazole [Omeprazole 40mg Capsule] 40 mg PO DAILY Lactulose [Lactulose 10gm/15ml Oral Soln] 1 dose PO MOWEFR Ipratropium [place] [Atrovent 0.5mg/2.5mL neb] 0.5 mg IH QID Cetirizine HCl 10 mg PO DAILY Polyethylene Glycol 3350 [Miralax 17gm Packet] 17 gm PO DAILY Promethazine HCl [Phenergan 25mg/mL 1mL vial] 12.5 mg IM Q6HP PRN PRN Reason: Nausea And Vomiting Magnesium Hydroxide [Milk of Magnesia] 30 ml PO DAILYP PRN PRN Reason: BOWELS Linaclotide [Linzess] 72 mcg PO DAILY Ipratropium/Albuterol Sulfate [Duoneb 3mL neb] 3 ml IH QID Acetaminophen [Acetaminophen 650mg suppository] 650 mg RC Q6HP PRN PRN Reason: Fever > 100.4 Cefdinir [Omnicef 300mg Capsule] 300 mg PO BID 4 Days #8 capsule Sennosides [Senna] 8.6 mg PO BID Bismuth Subsalicylate [Pepto-Bismol] 30 ml PO QIDP PRN PRN Reason: STOMACH DISCOMFORT predniSONE [Prednisone 20mg Tab] 20 mg PO DAILY Discontinued Aspirin [Aspirin 81mg chewable tab] 81 mg PO DAILY Cranberry Fruit Extract [Cranberry] 405 mg PO DAILY Quetiapine Fumarate [Seroquel] 12.5 mg PO HS Guaifenesin/Dextromethorphan [Robafen Dm Cough Liquid] 5 ml PO Q4HP PRN PRN Reason: Cough Memantine HCl [Memantine 10mg Tablet] 10 mg PO BID Budesonide 0.5 mg IH BID
--- NOTE | 2017-12-31 16:14 | Progress Note ---
Subjective Date: 12/31/17 Time: 15:30 Principal diagnosis: Fracture neck of femur, right hip PN: Obj Ex Vital signs: Temp Pulse Resp BP Pulse Ox 98.6 F 96 H 18 158/73 100 12/31/17 16:00 12/31/17 16:00 12/31/17 16:00 12/31/17 16:00 12/31/17 16:00 Narrative: Laboratory Results - last 24 hr 12/31/17 05:19: WBC 11.7 H, RBC 2.85 L, Hgb 8.3 L D, Hct 24.6 L, MCV 86.3, MCH 29.3, MCHC 34.0, RDW 13.9, Plt Count 217, MPV 7.3 L, Neut % (Auto) 74.5, Lymph % (Auto) 15.0, [place] % (Auto) 7.7, Eos % (Auto) 2.7, Baso % (Auto) 0.2, Neut # (Auto) 8.7 H, Lymph # (Auto) 1.8, [place] # (Auto) 0.9, Eos # (Auto) 0.3, Baso # (Auto) 0.0 12/31/17 05:19: Sodium 134 L, Potassium 4.6, Chloride 107, Carbon Dioxide 23, Anion Gap 8.6, BUN 25 H D, Creatinine 1.14 H D, Estimated Creat Clear 46, Estimated GFR 45 L, Est GFR ( Amer) 54 L D, Glucose 103, Calcium 7.5 L 12/31/17 08:50: WBC 10.9 H, RBC 2.84 L, Hgb 8.1 L, Hct 24.7 L, MCV 86.8, MCH 28.4, MCHC 32.7, RDW 14.0, Plt Count 215, MPV 7.9, Neut % (Auto) 73.7, Lymph % (Auto) 15.8, [place] % (Auto) 7.8, Eos % (Auto) 2.5, Baso % (Auto) 0.2, Neut # (Auto) 8.0 H, Lymph # (Auto) 1.7, [place] # (Auto) 0.9, Eos # (Auto) 0.3, Baso # (Auto) 0.0 12/31/17 08:50: Sodium 140, Potassium 4.4, Chloride 109 H, Carbon Dioxide 24, Anion Gap 11.4, BUN 26 H, Creatinine 1.19 H, Estimated Creat Clear 44, Estimated GFR 43 L, Est GFR ( Amer) 52 L, Glucose 128 H D, Calcium 7.6 L - Urinary Catheter Management Yung Cath placed during this visit: yes Urethral indwelling: Yes Insertion date: 12/28/17 Insertion time: 06:20 Progress Note: A&P (1) Hip fracture Status: Acute Current Visit: Yes (2) SDAT (senile dementia of Alzheimer's type) Status: Chronic Current Visit: Yes (3) Chronic bronchitis Status: Chronic Current Visit: No (4) Fall Status: Acute Current Visit: No (5) Postoperative fever Status: Acute Current Visit: Yes (6) Postoperative anemia due to acute blood loss Status: Acute Current Visit: Yes (7) Left lower lobe pneumonia Status: Acute Current Visit: Yes
[2018-01-01 06:25] LABS: Anion Gap 8.6 mEq/L (5-15); Basophils % 0.3 % (0.1-2.0); Calcium 7.2 mg/dL (8.5-10.1); Eosinophils # 0.4 K/mm3 (0.0-0.4); Eosinophils % 4.9 % (0.1-12.0); Lymphocytes # 2.1 K/mm3 (0.7-4.5); Lymphocytes % 23.8 K/mm3 (10-50); Mean Corpuscular HGB Conc 32.8 g/dL (31.8-35.4); Mean Corpuscular Hemoglobin 28.4 pg (27.0-31.2); Mean Corpuscular Volume 86.7 fl (81-99); Mean Platelet Volume 7.4 fl (7.4-10.4); Monocytes # 0.6 K/mm3 (0.1-1.0); Monocytes % 7.2 % (1.7-9.3); Neutrophils # 5.6 K/mm3 (1.8-7.8); Neutrophils % 63.8 % (37.0-80.0); Platelet Count 262 K/mm3 (142-424); Potassium 4.6 mmoL/L (3.5-5.1); Red Blood Count 2.56 M/mm3 (4.20-5.40); Red Cell Distribution Width 14.2 % (11.5-17.5); White Blood Count 8.8 K/mm3 (4.8-10.8)
[2018-01-01 06:28] LABS: Hematocrit 22.2 % (37.0-47.0); Hemoglobin 7.3 g/dL (12.2-16.2)
--- NOTE | 2018-01-01 14:34 | Progress Note ---
Subjective Date: 01/01/18 Time: 13:00 Principal diagnosis: Fracture neck of femur, right hip PN: Obj Ex Vital signs: Temp Pulse Resp BP Pulse Ox 98.8 F 90 18 145/79 98 01/01/18 14:00 01/01/18 14:00 01/01/18 14:00 01/01/18 14:00 01/01/18 14:00 Narrative: Laboratory Results - last 24 hr 01/01/18 05:56: WBC 8.8, RBC 2.56 L, Hgb 7.3 L*, Hct 22.2 L*, MCV 86.7, MCH 28.4, MCHC 32.8, RDW 14.2, Plt Count 262, MPV 7.4, Neut % (Auto) 63.8, Lymph % (Auto) 23.8, [place] % (Auto) 7.2, Eos % (Auto) 4.9, Baso % (Auto) 0.3, Neut # (Auto) 5.6, Lymph # (Auto) 2.1, [place] # (Auto) 0.6, Eos # (Auto) 0.4, Baso # (Auto) 0.0 01/01/18 05:56: Sodium 139, Potassium 4.6, Chloride 110 H, Carbon Dioxide 25, Anion Gap 8.6, BUN 17 D, Creatinine 0.86 D, Estimated Creat Clear 53, Estimated GFR 62, Est GFR ( Amer) 75 D, Glucose 90 D, Calcium 7.2 L 01/01/18 08:50: Blood Type O Positive, Antibody Screen Negative, Crossmatch (AHG) See Detail - Urinary Catheter Management Yung Cath placed during this visit: yes Urethral indwelling: Yes Insertion date: 12/28/17 Insertion time: 06:20 Progress Note: A&P (1) Hip fracture Status: Acute Current Visit: Yes (2) SDAT (senile dementia of Alzheimer's type) Status: Chronic Current Visit: Yes (3) Chronic bronchitis Status: Chronic Current Visit: No (4) Fall Status: Acute Current Visit: No (5) Postoperative fever Status: Acute Current Visit: Yes (6) Postoperative anemia due to acute blood loss Status: Acute Current Visit: Yes (7) Left lower lobe pneumonia Status: Acute Current Visit: Yes
[2018-01-01 14:48] LABS: Hematocrit 28.1 % (37.0-47.0)
[2018-01-01 14:56] LABS: Hemoglobin 9.1 g/dL (12.2-16.2)
== END 2018-01-01 16:26 ==
LOC: 2ND 00:10 → ER 00:10 → OBSVTOIN 02:10 → 2ND 02:12
PROVIDERS: ADMIT Family Medicine; ATTEND Internal Medicine Adolescent Medicine